=== PATIENT | female | born 1995 | race Caucasian/White ===

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

== ENCOUNTER → 2017-05-02 | Outpatient (CLI) | payer OTHER | LOC: M WUC 17:45 | PROVIDERS: ATTEND Physician Assistant | DX: J02.9 Acute pharyngitis, unspecified (principal) ==

== ENCOUNTER 2017-07-09 15:30 | Emergency (ER) | payer OTHER ==
[~2017-07-09] VITALS: Ht 177.8 cm; Wt 59.1 kg
[2017-07-09] MEDS ORDERED: TRINTAB3 (15:44)
--- NOTE | 2017-07-09 16:18 | REP ---
Left wrist four views: Comparison is 09/29/2012. There is no acute fracture or dislocation. The previous fracture of the distal radius has healed in satisfactory position alignment. Mineralization and joint spaces are normal. No calcifications or foreign bodies. Impression: Negative left wrist. Signed by Ulises Pena MD 07/09/2017 04:10 P
[2017-07-09 16:38] VITALS: BP 130/72
[2017-07-09] MEDS ORDERED: IBUPROFEN 600 MG TAB PO ONE (16:45)
== END 2017-07-09 16:45 | disposition home or self-care (01) ==
LOC: M ED 15:30
DX: S63.502A Unspecified sprain of left wrist, initial encounter (principal); Y04.0XXA Assault by unarmed brawl or fight, initial encounter; Y92.098 Other place in other non-institutional residence as the place of occurrence of the external cause; Y93.89 Activity, other specified; Y99.8 Other external cause status; F41.9 Anxiety disorder, unspecified; F32.9 Major depressive disorder, single episode, unspecified; Z88.5 Allergy status to narcotic agent

== ENCOUNTER → 2017-09-27 | Outpatient (CLI) | payer OTHER | LOC: M ADAMS 13:37 | DX: M25.532 Pain in left wrist (principal) ==

== ENCOUNTER → 2018-01-31 | Outpatient (REF) | payer OTHER | LOC: M LAB REF 15:05 | DX: J02.9 Acute pharyngitis, unspecified (principal) ==

== ENCOUNTER 2018-03-30 22:46 | Emergency (ER) | payer OTHER ==
[2018-03-31] MEDS: ACETAMINOPHEN 325 MG TAB PO (03:06)
== END 2018-03-31 05:08 | disposition home or self-care (01) ==
LOC: M ED 22:46
DX: T74.11XA Adult physical abuse, confirmed, initial encounter (principal); T14.8XXA Other injury of unspecified body region, initial encounter; R93.7 Abnormal findings on diagnostic imaging of other parts of musculoskeletal system; Y07.11 Biological father, perpetrator of maltreatment and neglect; Y92.89 Other specified places as the place of occurrence of the external cause; Z88.5 Allergy status to narcotic agent; Z79.3 Long term (current) use of hormonal contraceptives
CPT/HCPCS: 71101

== ENCOUNTER 2018-09-28 14:59 | Inpatient (IN) | payer MEDICAID, OTHER ==
[~2018-09-28] VITALS: Ht 175.3 cm; Wt 59.1 kg
[~2018-09-28 14:59] MED LIST: TRINTAB
[2018-09-28 16:21] LABS: HEMATOCRIT 43.8 % (36.0-47.0); HEMOGLOBIN 14.8 g/dl (12.0-15.5); MEAN CORPUSCULAR HEMOGLOBIN 27.8 pg (27.0-33.0); MEAN CORPUSCULAR HGB CONC 33.8 g/dl (32.0-36.5); MEAN CORPUSCULAR VOLUME 82.3 fl (80.0-96.0); PLATELET COUNT, AUTOMATED 254 10^3/uL (150-450); RED BLOOD COUNT 5.32 10^6/uL (4.00-5.40); WHITE BLOOD COUNT 8.2 10^3/uL (4.0-10.0)
[2018-09-28 16:40] LABS: AMPHETAMINES LEVEL URINE NEGATIVE (NEGATIVE); BARBITURATES URINE NEGATIVE (NEGATIVE); BENZODIAZEPINES URINE NEGATIVE (NEGATIVE); CANNABINOIDS URINE POSITIVE (NEGATIVE); COCAINE METABOLITE URINE POSITIVE (NEGATIVE); METHADONE URINE NEGATIVE (NEGATIVE); OPIATES URINE NEGATIVE (NEGATIVE); PHENCYCLIDINE URINE NEGATIVE (NEGATIVE)
[2018-09-28 16:49] LABS: ALT/SGPT 27 U/L (12-78); BILIRUBIN,TOTAL 1.3 MG/DL (0.2-1.0); BLOOD UREA NITROGEN 9 MG/DL (7-18); CALCIUM LEVEL 9.2 MG/DL (8.5-10.1); CARBON DIOXIDE LEVEL 28 MEQ/L (21-32); CHLORIDE LEVEL 105 MEQ/L (98-107); CREATININE FOR GFR 0.69 MG/DL (0.55-1.30); GLOMERULAR FILTRATION RATE > 60.0 (>60); GLUCOSE, FASTING 86 MG/DL (70-100); POTASSIUM SERUM 3.8 MEQ/L (3.5-5.1); SODIUM LEVEL 143 MEQ/L (136-145)
[2018-09-28 16:50] LABS: ACETAMINOPHEN LEVEL < 2.0 UG/ML (10.0-30.0); ALBUMIN 4.5 GM/DL (3.2-5.2); BILIRUBIN,DIRECT 0.3 MG/DL (0.0-0.2); ETHYL ALCOHOL (ETHANOL) < 0.003 % (0.000-0.010); HCG, SERUM QUALITATIVE NEGATIVE (NEGATIVE); SALICYLATE LEVEL < 1.7 MG/DL (5.0-30.0); THYROID STIMULATING HORMONE 0.948 uIU/ML (0.358-3.740); TOTAL PROTEIN 7.7 GM/DL (6.4-8.2)
[2018-09-28] MEDS ORDERED: ALPRAZolam 0.5 MG TAB PO ONE (17:30)
[2018-09-28] MEDS ORDERED: ACETAMINOPHEN TAB 650MG DOSE (2X325MG) PO PRN (18:15)
[2018-09-28] MEDS ORDERED: MOM 30ML SUSPENSION UDC PO PRN (18:15)
[2018-09-28] MEDS ORDERED: MAALOX 30 ML SUSP *UDC PO PRN (18:15)
[2018-09-28 19:42] VITALS: BP 134/70
[2018-09-28] MEDS: traZODone 50 MG TAB PO PRN (22:50)
[2018-09-29 06:35] VITALS: BP 106/52
--- NOTE | 2018-09-29 09:28 | HPEPDOC ---
[facility] Medical History & Physical Date of Admission Sep 28, 2018 History and Physical PCP: None ATTENDING: Dr. Kenji Odonnell HPI: 23yoF admitted to [facility] for unspecified depressive disorder, being medically examined today. No acute medical complaints today. Denies any fevers, chills, weakness, fatigue, COLLIER, CP, SOB, cough, palpitations, abdominal pain, N/V/D or changes in bowel or bladder habits. PMHx: Anxiety Depression PTSD History of SI substance use PSHX: oral surgery SOCHX: Resides in: [facility] Marital Status: single Kids: none Employment: unemployed Tobacco use: denies ETOH: states 3 shots tequila Friday Illicit Drugs: cocaine, marijuana IV Drug Use: Denies Tattoos done unprofessionally: Denies FAMHX: Mother: Alive, h/o DVT Father: Alive, well Siblings: Alive, well Children: none Unexpected deaths due to medical reasons: None. ROS: As noted in HPI, otherwise 11pt ROS of systems reviewed and remarkable only for LMP 09/27/18. PE: GEN: 23yoF, appears stated age. Well-nourished, well developed. No acute distress. Alert and oriented x 3. Avoids eye contact. HEENT: Normocephalic, atraumatic. Pupils are equal, round, and reactive to light. Extraocular movements are intact. No nystagmus appreciated. Sclera are nonicteric. Conjunctiva without injection. Nose midline. Nasal turbinates without bogginess. EACs both patent BL. TMs both visualized and dockery with good cone of light, no bulging or erythema. No facial asymmetry. Moist mucous membranes. Dentition fair. Pharynx pink and moist, no cobblestoning. Neck supple, trachea midline. No lymphadenopathy or thyromegaly appreciated. CHEST: Regular rate and rhythm, +S1, +S2 LUNGS: Clear to auscultation bilaterally. No wheezes, rales, or rhonchi. Breathing appears symmetric and easy. Patient is speaking in full sentences. No accessory muscle use. ABD: Round, soft, non-tender, non-distended. +Bowel sounds throughout. No rebound or guarding. No costovertebral angle tenderness. EXT: Pulses 2+ bilaterally dorsalis pedis and radial. No lower extremity edema appreciated. SKIN: [place], dry, warm. Capillary refill <2sec. No rashes. NEURO: Alert and oriented x 3. Cranial nerves III-XII are intact. No focal deficits appreciated. EKG: pending A&P: 23yoF admitted to [facility] for unspecified depressive disorder 1. Psych. Plan per Psychiatry. Obtain baseline EKG to assure the safety of psychiatric medications as they can prolong the QT interval. 2. Follow up. No Primary Care Provider. Will attempt to establish PCP on discharge. 3. Substance use. Management per psychiatry. Vital Signs Vital Signs Date Time Temp Pulse Resp B/P (MAP) Pulse Ox O2 Delivery O2 Flow Rate FiO2 09/29/18 08:26 Room Air 09/29/18 06:35 97.6 60 16 106/52 (70) 09/28/18 17:48 99 Laboratory Data Labs 24H Laboratory Tests 2 09/28/18 16:00: Nucleated Red Blood Cells % (auto) 0.0, Anion Gap 10, Glomerular Filtration Rate > 60.0, Calcium Level 9.2, Aspartate Amino Transf (AST/SGOT) 13, Alanine Aminotransferase (ALT/SGPT) 27, Alkaline Phosphatase 72, Total Bilirubin 1.3H, Direct Bilirubin 0.3H, Total Protein 7.7, Albumin 4.5, Albumin/Globulin Ratio 1.41, Thyroid Stimulating Hormone (TSH) 0.948, Human Chorionic Gonadotropin, Qual NEGATIVE, Salicylates Level < 1.7L, Urine Amphetamines Screen NEGATIVE, Urine Benzodiazepines Screen NEGATIVE, Urine Opiates Screen NEGATIVE, Urine Methadone Screen NEGATIVE, Acetaminophen Level < 2.0L, Urine Barbiturates Screen NEGATIVE, Urine Phencyclidine Screen NEGATIVE, Urine Cocaine Metabolite Screen POSITIVEH, Urine Cannabinoids Screen POSITIVEH, Ethyl Alcohol Level < 0.003 CBC/BMP Laboratory Tests 09/28/18 16:00 Red Blood Count 5.32, Mean Corpuscular Volume 82.3, Mean Corpuscular Hemoglobin 27.8, Mean Corpuscular Hemoglobin Concent 33.8, Red Cell Distribution Width 13.7 Home Medications No Active Prescriptions or Reported Meds Allergies Coded Allergies: Hydrocodone (Verified Allergy, Mild, rash, 09/28/18) Sully Larsen Sep 29, 2018 09:28
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
[2018-09-29] MEDS ORDERED: FLUoxetine 10 MG CAP PO ONE (10:30)
[2018-09-29 18:10] VITALS: BP 122/70
[2018-09-29] MEDS: PRAZOSIN 1 MG CAP PO SCH (21:09)
[2018-09-29] MEDS: traZODone 50 MG TAB PO PRN (21:09)
[2018-09-30 06:14] VITALS: BP 123/60
--- NOTE | 2018-09-30 07:59 | ECGEPIP ---
Stationary ECG Study [facility] Test Date: 2018-09-29 Pat Name: ALY MCDANIEL Department: Room: [place] [address] Gender: F Technical Writer: : 1995 Requested By: Sully Larsen Order Number: [id number] Reading MD: Leandro Myles Measurements Intervals [place] Rate: 56 P: -29 NV: 152 QRS: 67 QRSD: 85 T: 42 QT: 455 QTc: 440 Interpretive Statements SINUS BRADYCARDIA Nonspecific ST-T wave abnormalities Similar to tracing done 12-09-16 Electronically Signed On 09-30-2018 7:59:17 EST by Leandro Myles
[2018-09-30] MEDS: FLUoxetine 10 MG CAP PO SCH (08:23)
[2018-09-30] MEDS: hydrOXYzine 25 MG TAB PO PRN ×2 (08:24→15:57)
[2018-09-30] MEDS ORDERED: DOXEPIN 10 MG CAP PO PRN (09:30)
--- NOTE | 2018-09-30 09:30 | MHIPNPDOC ---
[facility] Progress Note Progress Note DATE OF SERVICE: 09/30/18 HISTORY: Patient is a 23 -year-old , female, with psych history of PTSD and depression who self presented to the ED endorsing SI with no plan due to r elationship problems with her ex-boyfriend of 1yr. Pt stated in the ED that 'I can't handle this stress, I want to kill myself." Stated that her ex-boyfriend and she have been on-and-off for the past year and that she recently thought they were getting back together and sent him money that he spent taking another girl on a date. Pt stated in the ED that her "heart was broken" and crying hysterically limiting interview. Pt admitted to being homeless and that DSS won't help her. Utox pos cocaine and cannabis. VITAL SIGNS: See below. NEW TEST RESULTS: See below. CURRENT MEDICATIONS: See below. MENTAL STATUS EXAMINATION: General Appearance: unkempt, disheveled, appears stated age, hospital scubs/clothing Build: average Demeanor: average, withdrawn Eye Contact: average Activity: average Behavior: cooperative, withdrawn Speech: clear, spontaneous, low in volume, reg/rate,rhythm,volume Mood: depressed, anxious Mood sad Affect: constricted, flat, congruent, anxious Thought Process: logical/linear, depressed, intact Thought Content (Delusions): none reported, denies SI, HI, AVH Thought Content (Other): none reported, appropriate Thought Content (Aggressive): none reported Perception (Hallucinations): none reported Perception (Other): none reported Cognition (Impairment of): none reported Cognition(Intelligence Est.): average Oriented: Awake, Alert, Oriented times three Insight: fair Judgment: Fair Psychosis: Denies DIAGNOSES: PTSD depression unspecified ASSESSMENT:Pt seen and states she dreams last night about her ex-boyfriend that were good but then woke up feeling sad realizing they are no longer together. Continues to endorse depressed mood and anxiety due to relationship problems and feeling hurt. Denies SI. Did take prazosin and trazodone last night and discussed with pt that trazodone can cause vivid dreams but that could switch it to doxepin for sleep which is unlikely to cause dreams and agreeable. Risks/benefits discussed. States she tolerating her prozac and vistaril and finding them beneficial. Is attending groups and finding them helpful. Denies SI/HI, hallucinations, delusions. Feels safe here. MANAGEMENT PLAN: continue plan. d/c trazodone and start doxepin for sleep Medications: prozac 10mg daily prazosin 1mg qhs vistaril 25mg q6hr prn anxiety doxepin 10mg qhs prn insomnia TIME SPENT: 30 minutes. Vital Signs Vital Signs Date Time Temp Pulse Resp B/P (MAP) Pulse Ox O2 Delivery O2 Flow Rate FiO2 09/30/18 06:14 98.2 72 18 123/60 (81) 09/29/18 08:26 Room Air 09/28/18 17:48 99 Current Medications Current Medications Acetaminophen (Tylenol Tab) 650 mg Q6HP PRN PO HEADACHE or DISCOMFORT Last administered on 09/28/18 22:51; Start 09/28/18 at 18:15 Al Hydrox/Mg Hydrox/Simethicone (Mylanta) 30 ml Q4HP PRN PO HEARTBURN/INDIGESTION; Start 09/28/18 at 18:15 Fluoxetine HCl (PROzac) 10 mg DAILY PO Last administered on 09/30/18 08:23; Start 09/30/18 at 09:00 Home Med (Med Rec Complete!) ASDIRECTED XX ; Start 09/28/18 at 18:30; Stop 09/28/18 at 18:30; Status DC Hydroxyzine HCl (Atarax) 25 mg Q6HP PRN PO ANXIETY Last administered on 08:24; Start 09/29/18 at 10:30 Magnesium Hydroxide (Milk Of Magnesia) 30 ml DAILYPRN PRN PO CONSTIPATION; Start 09/28/18 at 18:15 Prazosin HCl (Minipress) 1 mg QHS PO Last administered on 09/29/18 21:09; Start 09/29/18 at 21:00 Trazodone HCl (Desyrel) 50 mg QHSP PRN PO INSOMNIA Last administered on 09/29/18 21:09; Start 09/28/18 at 18:15 Allergies Coded Allergies: Hydrocodone (Verified Allergy, Mild, rash, 09/28/18) TODD DANIEL DO Sep 30, 2018 9:30 am
[2018-09-30 18:20] VITALS: BP 130/80
[2018-09-30] MEDS: PRAZOSIN 1 MG CAP PO SCH (22:18)
[2018-09-30] MEDS ORDERED: QUEtiapine FUMARATE 50 MG TAB PO ONE (23:30)
[2018-10-01 06:36] VITALS: BP 138/78
[2018-10-01] MEDS: FLUoxetine 10 MG CAP PO SCH (08:36)
[2018-10-01] MEDS: hydrOXYzine 25 MG TAB PO PRN ×3 (08:37→20:48)
--- NOTE | 2018-10-01 10:07 | MHIPNPDOC ---
[facility] Progress Note Progress Note DATE OF SERVICE: 10/01/18 HISTORY: Patient is a 23 -year-old , female, with psych history of PTSD and depression who self presented to the ED endorsing SI with no plan due to r elationship problems with her ex-boyfriend of 1yr. Pt stated in the ED that 'I can't handle this stress, I want to kill myself." Stated that her ex-boyfriend and she have been on-and-off for the past year and that she recently thought they were getting back together and sent him money that he spent taking another girl on a date. Pt stated in the ED that her "heart was broken" and crying hysterically limiting interview. Pt admitted to being homeless and that DSS won't help her. Utox pos cocaine and cannabis. VITAL SIGNS: See below. NEW TEST RESULTS: See below. CURRENT MEDICATIONS: See below. MENTAL STATUS EXAMINATION: General Appearance: clean, appears stated age, hospital scrubs/clothing Build: average Demeanor: average, withdrawn Eye Contact: average Activity: average Behavior: cooperative, withdrawn Speech: clear, spontaneous, low in volume, reg/rate,rhythm,volume Mood: less depressed, less anxious Mood "better" Affect: less constricted, flat, congruent, less anxious Thought Process: logical/linear, less depressed, intact Thought Content (Delusions): none reported, denies SI, HI, AVH Thought Content (Other): none reported, appropriate Thought Content (Aggressive): none reported Perception (Hallucinations): none reported Perception (Other): none reported Cognition (Impairment of): none reported Cognition(Intelligence Est.): average Oriented: Awake, Alert, Oriented times three Insight: fair Judgment: Fair Psychosis: Denies DIAGNOSES: PTSD depression unspecified ASSESSMENT:Pt seen and states she really well after taking dose of seroquel w/o worrisome thoughts preventing sleep and really liked it. States she took doxepin first but not helpful. States depressed mood and anxiety are improving with current meds and treatment. Denies SI. States she tolerating her prozac and vistaril and finding them beneficial. Is attending groups and finding them helpful. Denies SI/HI, hallucinations, delusions. Feels safe here. MANAGEMENT PLAN: continue plan. d/c doxepin and start seroquel for sleep Medications: prozac 10mg daily prazosin 1mg qhs vistaril 25mg q6hr prn anxiety seroquel 50mg qhs prn insomnia TIME SPENT: 30 minutes. Vital Signs Vital Signs Date Time Temp Pulse Resp B/P (MAP) Pulse Ox O2 Delivery O2 Flow Rate FiO2 10/01/18 06:36 98.6 76 16 138/78 (98) 09/29/18 08:26 Room Air 09/28/18 17:48 99 Current Medications Current Medications Acetaminophen (Tylenol Tab) 650 mg Q6HP PRN PO HEADACHE or DISCOMFORT Last administered on 09/28/18 22:51; Start 09/28/18 at 18:15 Al Hydrox/Mg Hydrox/Simethicone (Mylanta) 30 ml Q4HP PRN PO HEARTBURN/INDIGESTION; Start 09/28/18 at 18:15 Doxepin HCl (SINEquan) 10 mg QHS PRN PO INSOMNIA Last administered on 09/30/18 22:18; Start 09/30/18 at 09:30 Fluoxetine HCl (PROzac) 10 mg DAILY PO Last administered on 10/01/18 08:36; Start 09/30/18 at 09:00 Home Med (Med Rec Complete!) ASDIRECTED XX ; Start 09/28/18 at 18:30; Stop 09/28/18 at 18:30; Status DC Hydroxyzine HCl (Atarax) 25 mg Q6HP PRN PO ANXIETY Last administered on 10/01/18 08:37; Start 09/29/18 at 10:30 Magnesium Hydroxide (Milk Of Magnesia) 30 ml DAILYPRN PRN PO CONSTIPATION; Start 09/28/18 at 18:15 Prazosin HCl (Minipress) 1 mg QHS PO Last administered on 09/30/18 22:18; Start 09/29/18 at 21:00 Trazodone HCl (Desyrel) 50 mg QHSP PRN PO INSOMNIA Last administered on 09/29/18 21:09; Start 09/28/18 at 18:15; Stop 09/30/18 at 09:31; Status DC Allergies Coded Allergies: Hydrocodone (Verified Allergy, Mild, rash, 09/28/18) TODD DANIEL DO Oct 01, 2018 10:07 am
[2018-10-01 18:00] VITALS: BP 136/85
[2018-10-01 20:48] VITALS: BP 132/74
[2018-10-01] MEDS: PRAZOSIN 1 MG CAP PO SCH (20:48)
[2018-10-01] MEDS ORDERED: QUEtiapine FUMARATE 50 MG TAB PO SCH (21:00)
[2018-10-02 06:00] VITALS: BP 125/72
[2018-10-02] MEDS: FLUoxetine 10 MG CAP PO SCH (08:45)
--- NOTE | 2018-10-02 09:39 | MHDSPDOC ---
[facility] Discharge Summary Discharge Summary DATE OF ADMISSION: Sep 28, 2018 at 6:09 pm DATE OF DISCHARGE: Oct 02, 2018 DISCHARGE DIAGNOSES: PTSD depression unspecified REASON FOR ADMISSION: Patient is a 23 -year-old , female, with psych history of PTSD and depression who self presented to the ED endorsing SI with no plan due to relationship problems with her ex-boyfriend of 1yr. Pt stated in the ED that 'I can't handle this stress, I want to kill myself." Stated that her ex-boyfriend and she have been on-and-off for the past year and that she recently thought they were getting back together and sent him money that he spent taking another girl on a date. Pt stated in the ED that her "heart was broken" and crying hysterically limiting interview. Pt admitted to being homeless and that DSS won't help her. Utox pos cocaine and cannabis. CONSULTANTS INVOLVED: none TREATMENT AND PROGRESS ON THE UNIT : Pt was admitted to [facility], seen for psychiatric assessment and started on prozac 10mg daily for mood and anxiety, seroquel 50mg for insomnia, and prazosin 1mg for nightmares. She was provided vistaril 25mg q6hr prn anxiety. Pt found her medications beneficial and tolerated them well. She attended groups daily during her stay. Her symptoms improved with treatment. On day of discharge she denied depression, anxiety, insomnia, SI/HI, hallucinations, delusions. She was discharged to homeless senior living for the next 2wks then reapply for [facility] housing. She will have at [facility]. She felt safe for discharge DISCHARGE ASSESSMENT: Pt seen and states her mood is "good" and she's finding her medications beneficial. Endorses improved depression, anxiety, and nightmares. She's future oriented to maybe returning to school. Denies SI. States she tolerating her prozac and vistaril and finding them beneficial. Is attending groups and finding them helpful. Denies depression, anxiety, insomnia, SI/HI, hallucinations, delusions. Feels safe to be discharged to homeless senior living. Her mother is supportive of her. MENTAL STATUS EXAMINATION ON DISCHARGE: General Appearance: clean, appears stated age, hospital scrubs/clothing Build: average Demeanor: average Eye Contact: average Activity: average Behavior: cooperative, withdrawn Speech: clear, spontaneous, reg/rate,rhythm,volume Mood: euthymic, full Mood "good" Affect: euthymic, full Thought Process: logical/linear, intact Thought Content (Delusions): none reported, denies SI, HI, AVH Thought Content (Other): none reported, appropriate Thought Content (Aggressive): none reported Perception (Hallucinations): none reported Perception (Other): none reported Cognition (Impairment of): none reported Cognition(Intelligence Est.): average Oriented: Awake, Alert, Oriented times three Insight: good Judgment: good Psychosis: Denies MEDICATIONS ON DISCHARGE: prozac 10mg daily prazosin 1mg qhs vistaril 25mg q6hr prn anxiety seroquel 50mg qhs prn insomnia PLAN/FOLLOWUP ARRANGEMENTS: D/c to homeless senior living with follow-up at [facility]. The amount of time spent in the coordination of care for this patient was approximately 30 minutes. Vital Signs/I&Os Vital Signs Date Time Temp Pulse Resp B/P (MAP) Pulse Ox O2 Delivery O2 Flow Rate FiO2 10/02/18 06:00 98.7 76 14 125/72 (89) 09/29/18 08:26 Room Air 09/28/18 17:48 99 Medications No Active Prescriptions or Reported Meds Allergies Coded Allergies: Hydrocodone (Verified Allergy, Mild, rash, 09/28/18) TODD DANIEL DO Oct 02, 2018 9:39 am
[2018-10-02] MEDS ORDERED: PROZ10CA7 PO (09:42)
[2018-10-02] MEDS ORDERED: MINI1CAP PO (09:42)
[2018-10-02] MEDS ORDERED: QUET5TAB PO (09:42)
[2018-10-02] MEDS ORDERED: HYDR-3363 PO (09:42)
[2018-10-02] MEDS: hydrOXYzine 25 MG TAB PO PRN ×2 (10:04→16:18)
== END 2018-10-02 16:27 | disposition home or self-care (01) | DRG 755 ==
LOC: M ED 14:59 → M ED INP 18:09 → M PSY 18:47
PROVIDERS: ADMIT Psychiatry & Neurology Psychiatry; ATTEND Psychiatry & Neurology Psychiatry
DX: F43.10 Post-traumatic stress disorder, unspecified (principal); R45.851 Suicidal ideations; F32.9 Major depressive disorder, single episode, unspecified; F41.9 Anxiety disorder, unspecified; Z88.5 Allergy status to narcotic agent

== ENCOUNTER → 2019-05-07 | Outpatient (REF) | payer OTHER ==
[~2019-05-07] MED LIST changes: +HYDR-3363 PO; +MINI1CAP PO; +PROZ10CA7 PO; +QUET5TAB PO
[2019-05-07 17:40] LABS: ALBUMIN 4.1 GM/DL (3.2-5.2); ALT/SGPT 17 U/L (12-78); BILIRUBIN,TOTAL 0.5 MG/DL (0.2-1.0); BLOOD UREA NITROGEN 16 MG/DL (7-18); CALCIUM LEVEL 9.4 MG/DL (8.5-10.1); CARBON DIOXIDE LEVEL 26 MEQ/L (21-32); CHLORIDE LEVEL 108 MEQ/L (98-107); CHOLESTEROL LEVEL 194 MG/DL (<200); CHOLESTEROL RISK RATIO 3.031 (<5); CREATININE FOR GFR 0.87 MG/DL (0.55-1.30); FREE T4 0.94 NG/DL (0.76-1.46); GLOMERULAR FILTRATION RATE > 60.0 (>60); GLUCOSE, FASTING 112 MG/DL (70-100); HDL CHOLESTEROL 64 MG/DL (>40); LDL CHOLESTEROL 88 MG/DL (<100); NON-HDL-C 130 MG/DL; POTASSIUM SERUM 4.1 MEQ/L (3.5-5.1); SODIUM LEVEL 140 MEQ/L (136-145); TRIGLYCERIDES LEVEL 209 MG/DL (<150)
[2019-05-07 17:41] LABS: BASO # 0.1 10^3/uL (0.0-0.2); BASO % 0.5 % (0.0-1.0); EOS # 0.2 10^3/uL (0.0-0.5); EOS % 1.8 % (0.0-3.0); HEMATOCRIT 42.1 % (36.0-47.0); HEMOGLOBIN 14.6 g/dl (12.0-15.5); LYMPH # 1.8 10^3/uL (1.5-5.0); LYMPH % 18.5 % (24.0-44.0); MEAN CORPUSCULAR HEMOGLOBIN 29.1 pg (27.0-33.0); MEAN CORPUSCULAR HGB CONC 34.7 g/dl (32.0-36.5); MONO # 0.6 10^3/uL (0.0-0.8); MONO % 5.9 % (0.0-5.0); NEUTROPHILS # 6.9 10^3/uL (1.5-8.5); NEUTROPHILS % 72.9 % (36.0-66.0); PLATELET COUNT, AUTOMATED 217 10^3/uL (150-450); RED BLOOD COUNT 5.01 10^6/uL (4.00-5.40); WHITE BLOOD COUNT 9.5 10^3/uL (4.0-10.0)
[2019-05-07 18:50] LABS: HEMOGLOBIN A1c 5.1 %
== END ==
LOC: M LAB REF 16:54
PROVIDERS: ATTEND Nurse Practitioner Family
DX: Z13.9 Encounter for screening, unspecified (principal)

== ENCOUNTER → 2019-06-22 | Outpatient (CLI) | payer OTHER ==
--- NOTE | 2019-06-22 16:30 | REP ---
RIGHT BREAST ULTRASOUND: Real-time sonographic evaluation of the right breast performed. Reportedly there is a palpable lump at about 12-o'clock for the past year. There is dense fibroglandular tissue present. I do not see evidence of a discrete cystic or solid mass. IMPRESSION: ACR 2 benign. Dense breast parenchyma in the region of the palpable lump 12-o'clock right breast. No discrete cystic or solid mass. Clinical correlation and followup is recommended. A negative ultrasound should not deter biopsy of there is a clinically suspicious palpable mass present. Electronically Signed by Ulises Mills MD 06/22/2019 04:39 P
== END ==
LOC: M RAD 15:39
PROVIDERS: ATTEND Nurse Practitioner Family
DX: N63.10 Unspecified lump in the right breast, unspecified quadrant (principal)

== ENCOUNTER 2020-05-14 03:45 | Emergency (ER) | payer OTHER ==
[~2020-05-14] VITALS: Ht 172.7 cm; Wt 60.8 kg
[2020-05-14] MEDS ORDERED: BOOSTRIX/ADACEL VACCINE (DIPHTH/PERTUSS/ACELL/TETANUS) 0.5ML SYR IM ONE (04:00)
[2020-05-14] MEDS ORDERED: ceFAZolin SOD 1 GM in D5W MINI-BAG PLUS 50 ML IV ONE (04:00)
[2020-05-14] MEDS ORDERED: LORazepam 2 MG/ML VIAL IV STA (04:14)
[2020-05-14 04:40] LABS: BASO # 0.1 10^3/uL (0.0-0.2); BASO % 0.3 % (0.0-1.0); EOS % 0.1 % (0.0-3.0); HEMATOCRIT 48.7 % (36.0-47.0); HEMOGLOBIN 16.4 g/dl (12.0-15.5); LYMPH # 1.2 10^3/uL (1.5-5.0); LYMPH % 4.4 % (24.0-44.0); MEAN CORPUSCULAR HEMOGLOBIN 29.3 pg (27.0-33.0); MEAN CORPUSCULAR HGB CONC 33.7 g/dl (32.0-36.5); MEAN CORPUSCULAR VOLUME 87.1 fl (80.0-96.0); MONO # 1.4 10^3/uL (0.0-0.8); NEUTROPHILS # 24.8 10^3/uL (1.5-8.5); NEUTROPHILS % 89.5 % (36.0-66.0); PLATELET COUNT, AUTOMATED 294 10^3/uL (150-450); RED BLOOD COUNT 5.59 10^6/uL (4.00-5.40); WHITE BLOOD COUNT 27.6 10^3/uL (4.0-10.0)
[2020-05-14 05:09] LABS: HCG, SERUM QUALITATIVE NEGATIVE (NEGATIVE)
[2020-05-14 05:14] LABS: AMPHETAMINES LEVEL URINE NEGATIVE (NEGATIVE); BARBITURATES URINE NEGATIVE (NEGATIVE); BENZODIAZEPINES URINE POSITIVE (NEGATIVE); CANNABINOIDS URINE NEGATIVE (NEGATIVE); COCAINE METABOLITE URINE NEGATIVE (NEGATIVE); METHADONE URINE NEGATIVE (NEGATIVE); OPIATES URINE NEGATIVE (NEGATIVE); PHENCYCLIDINE URINE NEGATIVE (NEGATIVE)
[2020-05-14 05:14] LABS: ACETAMINOPHEN LEVEL < 2.0 UG/ML (10.0-30.0); ALBUMIN 4.6 GM/DL (3.2-5.2); ALT/SGPT 37 U/L (12-78); BILIRUBIN,DIRECT 0.2 MG/DL (0.0-0.2); BILIRUBIN,TOTAL 0.8 MG/DL (0.2-1.0); BLOOD UREA NITROGEN 12 MG/DL (7-18); CALCIUM LEVEL 9.6 MG/DL (8.5-10.1); CARBON DIOXIDE LEVEL 23 MEQ/L (21-32); CHLORIDE LEVEL 107 MEQ/L (98-107); CPK CREATINE PHOSPHOKINASE 452 U/L (26-192); CREATININE FOR GFR 1.05 MG/DL (0.55-1.30); ETHYL ALCOHOL (ETHANOL) < 0.003 % (0.000-0.010); GLOMERULAR FILTRATION RATE > 60.0 (>60); GLUCOSE, FASTING 116 MG/DL (70-100); POTASSIUM SERUM 3.5 MEQ/L (3.5-5.1); SALICYLATE LEVEL < 1.7 MG/DL (5.0-30.0); SODIUM LEVEL 142 MEQ/L (136-145); TOTAL PROTEIN 7.5 GM/DL (6.4-8.2)
[2020-05-14] MEDS ORDERED: DERMABOND TOPICAL SKIN ADHESIVE TOP ONE (05:30)
[2020-05-14 08:12] LABS: BASO % 0.2 % (0.0-1.0); HEMATOCRIT 44.6 % (36.0-47.0); HEMOGLOBIN 15.1 g/dl (12.0-15.5); LYMPH # 0.9 10^3/uL (1.5-5.0); LYMPH % 6.2 % (24.0-44.0); MEAN CORPUSCULAR HEMOGLOBIN 29.4 pg (27.0-33.0); MEAN CORPUSCULAR HGB CONC 33.9 g/dl (32.0-36.5); MEAN CORPUSCULAR VOLUME 86.8 fl (80.0-96.0); MONO % 6.3 % (0.0-5.0); NEUTROPHILS # 13.1 10^3/uL (1.5-8.5); NEUTROPHILS % 86.8 % (36.0-66.0); PLATELET COUNT, AUTOMATED 196 10^3/uL (150-450); RED BLOOD COUNT 5.14 10^6/uL (4.00-5.40); WHITE BLOOD COUNT 15.1 10^3/uL (4.0-10.0)
--- NOTE | 2020-05-14 08:20 | REPVR ---
PROCEDURE INFORMATION: Exam: CT Head Without Contrast Exam date and time: 05/14/2020 8:02 AM Age: 25 years old Clinical indication: Altered mental status/memory loss; Confusion or disorientation TECHNIQUE: Imaging protocol: Computed tomography of the head without contrast. Radiation optimization: All CT scans at this facility use at least one of these dose optimization techniques: automated exposure control; mA and/or kV adjustment per patient size (includes targeted exams where dose is matched to clinical indication); or iterative reconstruction. COMPARISON: CT Head without contrast 03/31/2018 2:20 AM FINDINGS: Brain: There is no acute intracranial hemorrhage. No extra-axial fluid collection. No evidence of acute infarct. Mills white differentiation is intact. There is no evidence of mass. There is no mass effect or midline shift. Cerebral ventricles: No ventriculomegaly. Bones/joints: No acute fracture. Paranasal sinuses: Visualized sinuses are unremarkable. No fluid levels. Mastoid air cells: No significant mastoid effusion. Soft tissues: Unremarkable as visualized. IMPRESSION: No evidence of acute intracranial abnormality. No acute hemorrhage. No evidence of acute infarct or mass. Electronically signed by: Chelo Petit On 05/14/2020 08:20:07 AM
--- NOTE | 2020-05-14 08:21 | REPVR ---
PROCEDURE INFORMATION: Exam: XR Chest, 1 View Exam date and time: 05/14/2020 8:08 AM Age: 25 years old Clinical indication: Other: General weakness; Additional info: Leukocytosis TECHNIQUE: Imaging protocol: XR of the chest Views: 1 view. COMPARISON: CR Ribs uni W-PA CHEST ONLY 03/31/2018 2:24 AM FINDINGS: Lungs: No consolidation. Pleural space: No significant visible pleural effusion. No pneumothorax. Heart/Mediastinum: No significant cardiomegaly. Bones/joints: No acute finding. IMPRESSION: No acute finding. Electronically signed by: Chelo Petit On 05/14/2020 08:21:45 AM
[2020-05-14] MEDS ORDERED: NS 1,000 ML IV ONE (10:00)
[2020-05-14] MEDS ORDERED: KETOROLAC 30 MG/ML 1ML VIAL IV ONE (10:00)
[2020-05-14 10:30] VITALS: BP 128/78
[2020-05-14] MEDS ORDERED: KEFL500C17 PO (10:40)
--- NOTE | 2020-05-14 20:50 | ECGEPIP ---
[facility] - ED Test Date: 2020-05-14 Pat Name: ALY MCDANIEL Department: Room: - Gender: Female Puffer Tender: NR : 1995 Requested By: NORMA Melendez Order Number: [id number] Reading MD: Opal Wilson Measurements Intervals [place] Rate: 122 P: 76 ME: 162 QRS: 70 QRSD: 86 T: 72 QT: 419 QTc: 599 Interpretive Statements SINUS TACHYCARDIA NONSPECIFIC T-WAVE ABNORMALITY ABNORMAL RHYTHM ECG INCREASED RATE 09/29/18 Electronically Signed on 05-14-2020 20:50:00 EDT by Opal Wilson
[2020-05-25 16:08] LABS: AMINOFLUNITRAZEPAM Negative (NEGATIVE); FLUNITRAZEPAM (ROHYPNOL) Negative (NEGATIVE)
== END 2020-05-14 10:50 | disposition left against medical advice (07) ==
LOC: M ED 03:45
DX: G93.41 Metabolic encephalopathy (principal); T07.XXXA Unspecified multiple injuries, initial encounter; R00.0 Tachycardia, unspecified; Z53.9 Procedure and treatment not carried out, unspecified reason; F33.9 Major depressive disorder, recurrent, unspecified; F41.9 Anxiety disorder, unspecified; Z88.6 Allergy status to analgesic agent; Z79.899 Other long term (current) drug therapy
CPT/HCPCS: 36415; 70450; 71045; 80048; 80076; 80307; 81001; 82550; 84703; 85025; 87040; 87077; 90471; 90715; 93005; 96365; 96366; 96375; 99285; G0480; J0690; J1885; J2060

== ENCOUNTER 2020-08-10 00:23 | Emergency (ER) | payer OTHER ==
[~2020-08-10 00:23] MED LIST changes: +KEFL500C17 PO; +QUET50TA3 PO; -QUET5TAB PO
--- OUTSIDE RECORDS SUMMARY | 2020-08-10 00:29 | CCD ---
Author Author [facility] Organization [facility] Address Unknown Phone Unavailable Care Team Providers Care Tank Operator Name Role Phone Raul, A Nida NARROW FABRICS WEAVER Unavailable Unavailable Raul, A Nida NARROW FABRICS WEAVER Unavailable Unavailable Raul, A Nida NARROW FABRICS WEAVER Unavailable Unavailable Raul, A Nida NARROW FABRICS WEAVER Unavailable Unavailable Raul, A Nida NARROW FABRICS WEAVER Unavailable Unavailable Raul, A Nida NARROW FABRICS WEAVER Unavailable Unavailable Raul, A Nida NARROW FABRICS WEAVER Unavailable Unavailable Raul, A Nida NARROW FABRICS WEAVER Unavailable Unavailable Raul, A Nida NARROW FABRICS WEAVER Unavailable Unavailable Raul, A Nida NARROW FABRICS WEAVER Unavailable Unavailable Raul, A Nida NARROW FABRICS WEAVER Unavailable Unavailable Raul, A Nida NARROW FABRICS WEAVER Unavailable Unavailable Raul, A Nida NARROW FABRICS WEAVER Unavailable Unavailable Raul, A Nida NARROW FABRICS WEAVER Unavailable Unavailable Raul, A Nida NARROW FABRICS WEAVER Unavailable Unavailable Raul, A Nida NARROW FABRICS WEAVER Unavailable Unavailable Raul, A Nida NARROW FABRICS WEAVER Unavailable Unavailable Raul, A Inda NARROW FABRICS WEAVER Unavailable Unavailable Raul, A Nida NARROW FABRICS WEAVER Unavailable Unavailable Raul, A Nida NARROW FABRICS WEAVER Unavailable Unavailable Raul, A Nida NARROW FABRICS WEAVER Unavailable Unavailable Raul, A Nida NARROW FABRICS WEAVER Unavailable Unavailable Raul, A Nida NARROW FABRICS WEAVER Unavailable Unavailable Raul, A Nida NARROW FABRICS WEAVER Unavailable Unavailable Raul, A Nida NARROW FABRICS WEAVER Unavailable Unavailable Raul, A Nida NARROW FABRICS WEAVER Unavailable Unavailable Raul, A Nida NARROW FABRICS WEAVER Unavailable Unavailable Heide Esparza Unavailable VINCE, H ANAID PROCESS CONTROL BOARD OPERATOR Unavailable Unavailable VINCE, H ANAID PROCESS CONTROL BOARD OPERATOR Unavailable Unavailable VINCE, H ANAID PROCESS CONTROL BOARD OPERATOR Unavailable Unavailable VINCE, H ANAID PROCESS CONTROL BOARD OPERATOR Unavailable Unavailable VINCE, H ANAID PROCESS CONTROL BOARD OPERATOR Unavailable Unavailable VINCE, H ANAID PROCESS CONTROL BOARD OPERATOR Unavailable Unavailable VINCE, H ANAID PROCESS CONTROL BOARD OPERATOR Unavailable Unavailable Raul, Nida NARROW FABRICS WEAVER NARROW FABRICS WEAVER Unavailable Unavailable Re-disclosure Warning The records that you are about to access may contain information from federally-assisted alcohol or drug abuse programs. If such information is present, then the following federally mandated warning applies: This information has been disclosed to you from records protected by federal confidentiality rules (42 CFR part 2). The federal rules prohibit you from making any further disclosure of this information unless further disclosure is expressly permitted by the written consent of the person to whom it pertains or as otherwise permitted by 42 CFR part 2. A general authorization for the release of medical or other information is NOT sufficient for this purpose. The Federal rules restrict any use of the information to criminally investigate or prosecute any alcohol or drug abuse patient.The records that you are about to access may contain highly sensitive health information, the redisclosure of which is protected by Article 27-F of the [facility] Public Health law. If you continue you may have access to information: Regarding HIV / AIDS; Provided by facilities licensed or operated by the [facility] Office of Mental Health; or Provided by the [facility] Office for People With Developmental Disabilities. If such information is present, then the following [facility] mandated warning applies: This information has been disclosed to you from confidential records which are protected by state law. State law prohibits you from making any further disclosure of this information without the specific written consent of the person to whom it pertains, or as otherwise permitted by law. Any unauthorized further disclosure in violation of state law may result in a fine or penitentiary sentence or both. A general authorization for the release of medical or other information is NOT sufficient authorization for further disc losure. Family History Family Member Name Family Member Gender Family Member Status Date o f Status Description Data Source(s) Unknown Unknown Problem [facility] ([facility]) pgm Unknown Unknown Encounters Encounter Providers Location Date Indications Data Source(s ) Outpatient Attender: Nida DAVID 05/15/2020 03:4 1:02 PM EDT [facility] Outpatient Attender: FRANKIE BEAUCHAMP 04/08/2020 12:02:32 A M EDT [facility] Outpatient Attender: FRANKIE TELLEZP NITO 01/04/2020 07:59:17 P M EDT [facility] Outpatient Attender: ANAID HOUSTON NP [facility] Cruz brasher 01/03/2020 04:30:00 AM EDT - 01/03/2020 04:30:00 AM EDT [facility] ([facility]) Attender: ANAID HOUSTON NP 01/03/2020 12:00:00 AM EDT [facility] ([facility]) Outpatient Attender: FRANKIE TELLEZBANNER 12/14/2019 03:37:00 P M EDT [facility] Outpatient Attender: ANAID HOUSTON NP [facility] brasher 12/01/2019 04:00:00 AM EDT - 12/01/2019 04:00:00 AM EDT [facility] ([facility]) Attender: ANAID HOUSTON NP 12/01/2019 12:00:00 AM EDT [facility] ([facility]) Outpatient Attender: ANAID HOUSTON NP [facility] brasher 11/08/2019 01:30:00 AM EDT - 11/08/2019 01:30:00 AM EDT [facility] ([facility]) Attender: ANAID HOUSTON NP 11/08/2019 12:00:00 AM EDT [facility] ([facility]) Outpatient Attender: Nida BEAUCHAMP 09/23/2019 11:3 3:01 AM [facility] Outpatient Attender: FRANKIE BEAUCHAMP 09/08/2019 03:02:00 P M [facility] Outpatient Attender: Nida TELLEZBANNER 09/08/2019 03:0 1:01 PM EST [facility] Outpatient Attender: ANAID HOUSTON NP [facility] brasher 09/08/2019 02:30:00 AM EST - 09/08/2019 02:30:00 AM EST [facility] ([facility]) Attender: ANAID HOUSTON NP 09/08/2019 12:00:00 AM EST [facility] ([facility]) Outpatient Attender: ANAID HOUSTON NP [facility] Cruz brasher 08/31/2019 04:00:00 AM EST - 08/31/2019 04:00:00 AM EST [facility] ([facility]) Attender: ANAID HOUSTON NP 08/31/2019 12:00:00 AM EST [facility] ([facility]) Outpatient Attender: ANAID HOUSTON NP [facility] Cruz anshu 08/03/2019 05:00:00 AM EST - 08/03/2019 05:00:00 AM EST [facility] ([facility]) Health Monitoring - 30 Min Attender: Heide Esparza [facility] amarjit Colette 08/03/2019 04:30:00 AM EST - 08/03/2019 04:30:00 AM EST [facility] ([facility]) Attender: ANAID HOUSTON NP 08/03/2019 12:00:00 AM EST [facility] ([facility]) Attender: Heide Esparza 08/03/2019 12:00:00 AM EST [facility] ([facility]) Outpatient Attender: Nida DAVID 07/10/2019 11:3 3:01 PM EST [facility]patient 07/06/2019 06:31:00 AM EST [facility] Attender: ANAID HOUSTON NP 07/06/2019 12:00:00 AM EST [facility] ([facility]) Outpatient Attender: ANAID HOUSTON NP [facility] anshu 07/05/2019 05:00:00 AM EST - 07/05/2019 05:00:00 AM EST [facility] ([facility]) Functional Status Medications Medication Brand Name Start Date Product Form Dose Route Admi nistrative Instructions Pharmacy Instructions Status Indications Reaction Description Data Source(s) olanzapine 2.5 MG Oral Tablet [Zyprexa] Zyprexa 12/01/2019 12: 00:00 AM EDT 2.5 mg by mouth completed Zyprexa by mouth [id number] 12/01/2019 01/30/2020 at bedtime 30 2.5 mg tablet [id number] [id number] Russ Houston [id number] Nurse Practitioner [facility] ([facility]) Hydroxyzine Hydrochloride 25 MG Oral Tablet hydroxyzine HCl 12/01/2019 12:00:00 AM EDT 25 mg completed [id number] hydroxyzine HCl 12/01/2019 12/31/2019 three times a day 15 25 mg tablet as needed 43981 1 [id number] Anaid Houston [id number] Nurse Practitioner [facility]) Prazosin 1 MG Oral Capsule prazosin 12/01/2019 12:00:00 AM EDT 1 mg by mouth completed [id number] prazosin by mouth [id number] 12/01/201911/2019 at bedtime 30 1 mg capsule 23306 [id number] Anaid Houston 3 [id number] Nurse Practitioner [facility] ([facility]) olanzapine 2.5 MG Oral Tablet [Zyprexa] Zyprexa 12/01/2019 12: 00:00 AM EDT 2.5 mg by mouth completed Zyprexa by mouth [id number] 12/01/2019 01/30/2020 at bedtime 30 2.5 mg tablet 46152 [id number] Russ Houston [id number] Nurse Practitioner [facility] ([facility]) Prazosin 1 MG Oral Capsule prazosin 12/01/2019 12:00:00 AM EDT 1 mg by mouth completed 448805 prazosin by mouth [id number] 12/01/201911/2019 at bedtime 30 1 mg capsule 88223 [id number] Anaid Houston 3 [id number] Nurse Practitioner [facility] ([facility]) Clonidine Hydrochloride 0.1 MG Oral Tablet clonidine HCl 12/01/2019 12:00:00 AM EDT 0.1 mg by mouth completed [id number] clonidine HCl by mouth [id number] 12/01/2019 12/07/2019 at bedtime 6 0.1 mg tablet 31521 [id number] Anaid Houston [id number] Nurse Practitioner [facility] ([facility]) Prazosin 1 MG Oral Capsule prazosin 04/22/2019 12:00:00 AM EDT 1 mg by mouth completed [id number] prazosin by mouth [id number] 04/22/201906/2020 at bedtime 30 1 mg capsule 70604 448026 [id number] Anaid Houston 3 [id number] Nurse Practitioner [facility] ([facility]) Fluoxetine 10 MG Oral Capsule fluoxetine 04/22/2019 12:00:00 AM EDT 10 mg by mouth completed [id number] fluoxetine by mouth [id number] 201810/02/2019 every morning 30 10 mg capsule 34155 [id number] Ernesto Houston [id number] Nurse Practitioner [facility] ([facility]) 24 HR Bupropion Hydrochloride 150 MG Extended Release Oral Tablet [Wellbutrin] Wellbutrin XL 04/22/2019 12:00:00 AM EDT 150 mg complete d [id number] Wellbutrin XL 04/22/2019 10/02/2019 every morning 30 150 mg tablet extended release 24 hr 04748 [id number] Anaid Houston [id number] Nurse Practitioner [facility] ([facility]) olanzapine 5 MG Oral Tablet [Zyprexa] Zyprexa 04/22/2019 12:00:00 AM EDT 5 mg by mouth completed 288886 Zyprexa by mouth [id number] 201810/02/2019 at bedtime 30 5 mg tablet 47397 716682 [id number] Anaid Houston [id number] Nurse Practitioner [facility] ([facility]) Fluoxetine 10 MG Oral Capsule fluoxetine 04/22/2019 12:00:00 AM EDT 10 mg by mouth completed [id number] fluoxetine by mouth [id number] 201811/07/2019 every morning 30 10 mg capsule 18576 [id number] Ernesto Houston [id number] Nurse Practitioner [facility] ([facility]) 24 HR Bupropion Hydrochloride 150 MG Extended Release Oral Tablet [Wellbutrin] Wellbutrin XL 04/22/2019 12:00:00 AM EDT 150 mg complete d [id number] Wellbutrin XL 04/22/2019 11/07/2019 every morning 30 150 mg tablet extended release 24 hr [id number] Anaiditalo Judde [id number] Nurse Practitioner [facility] ([facility]) Insurance Providers Payer name Policy type / Coverage type Policy ID Covered libertarian ID Covered libertarian's relationship to tapia Policy Tapia Plan Information MIO [id number] SP [id number] [place]ARE [place] O [id number] S [id number] Man[place] P [id number] S [id number] Medicaid S [id number] S [id number] Man[place] P [id number] S [id number] Man[place] P [id number] S [id number] Medicaid S [id number] S [id number] No Fault [id number] Self [id number] Mio [id number] Self [id number] No Fault [id number] Self [id number] No Fault Self MEDICAID [id number] SP [id number] CIGNA HEALTHCARE [id number] SP [id number] CIGNA/MVP/CONN GEN/PREFE O [id number] S [id number] Cigna/Conn Gen/Equicor Commercial [id number] Self [id number] Cigna/Conn Gen/Equ[employer]or Commercial [id number] Family Depende nt [id number] Cigna/Conn Gen/[employer] Commercial [id number] Self [id number] Cigna/Conn Gen/Equicor Commercial [id number] Self [id number] NO FAULT O [id number] S [id number] NO FAULT [id number] Cigna/Conn Gen/[employer] Commercial [id number] Self [id number] Cigna/Conn Gen/[employer] Commercial [id number] Self [id number] Cigna/Conn Gen/Equicor Commercial [id number] Self [id number] Cigna/Conn Gen/Equicor Commercial [id number] Self [id number] Cigna/Conn Gen/Equicor Commercial Self CIGNA HEALTHCARE -O/P [id number] 18 [id number] [facility] [id number] [id number] Cigna Medigap Part B Family Dependent Cigna Medigap Part B BC/BS Of [facility] MILI [id number] Problems, Conditions, and Diagnoses Code Display Name Description Problem Type Effective Dates Data Source(s) F10.10 Alcohol abuse, uncomplicated Alcohol Use Disorder, Mil d Condition 01/03/2020 12:00:00 AM EDT [facility] ([facility]) F43.12 Post-traumatic stress disorder, chronic Post-traumatic stress disorder, chronic Condition 01/03/2020 12:00:00 AM EDT [facility] ([facility]) F14.20 Cocaine dependence, uncomplicated Stimul ant Use Disorder. Moderate: Cocaine Condition 01/03/2020 12:00:00 AM EDT [facility] ([facility]) F12.20 Cannabis dependence, uncomplicated Cannabis Use Disorder, Moderate Condition 01/03/2020 12:00:00 AM EDT [facility] ([facility]) F33.1 Major depressive disorder, recurrent, mo derate Major Depressive Disorder, Recurrent episode, Moderate Condition 01/03/2020 12:00:00 AM EDT [facility] ([facility]) Surgeries/Procedures Procedure Description Date Indications Data Source(s) MHC Telemed E/M Lvl 3--Est pt 01/03/2020 12:00:00 AM EDT - 01/03/2020 12:00:00 AM EDT [facility] ([facility]) MHC Telemed E/M Lvl 3--Est pt 01/03/2020 12:00:00 AM E DT [facility] ([facility]) OFFICE OUTPATIENT VISIT 15 MINUTES 11/30 12:00:00 AM EDT - 12/01/2019 12:00:00 AM EDT [facility] ([facility]) OFFICE OUTPATIENT VISIT 15 MINUTES 12/01/2019 12:00:00 AM EDT [facility] ([facility]) MHC Telemed E/M Lvl 3--Est pt 11/08/2019 12:00:00 AM EDT - 11/08/2019 12:00:00 AM EDT [facility] ([facility]) MHC Telemed E/M Lvl 3--Est pt 11/08/2019 12:00:00 AM E DT [facility] ([facility]) OFFICE OUTPATIENT VISIT 15 MINUTES 09/08 12:00:00 AM EST - 09/08/2019 12:00:00 AM EST [facility] ([facility]) OFFICE OUTPATIENT VISIT 15 MINUTES 09/08/2019 12:00:00 AM EST [facility] ([facility]) OFFICE OUTPATIENT VISIT 15 MINUTES 08/31 12:00:00 AM EST - 08/31/2019 12:00:00 AM EST [facility] ([facility]) OFFICE OUTPATIENT VISIT 15 MINUTES 08/31/2019 12:00:00 AM EST [facility] ([facility]) OFFICE OUTPATIENT VISIT 15 MINUTES 08/03 12:00:00 AM EST - 08/03/2019 12:00:00 AM EST [facility] ([facility]) OFFICE OUTPATIENT VISIT 15 MINUTES 08/03/2019 12:00:00 AM EST [facility] ([facility]) PREVENT MED TESTER ROCKET ENGINE&/RISK FACTOR REDJ SPX 30 MIN 08/03/2019 12:00:00 AM EST - 08/03/2019 12:00:00 AM EST [facility] ([facility]) PREVENT MED TESTER ROCKET ENGINE&/RISK FACTOR REDJ SPX 30 MIN 08/03 12:00:00 AM EST [facility] ([facility]) OFFICE OUTPATIENT VISIT 15 MINUTES 07/06 12:00:00 AM EST - 07/06/2019 12:00:00 AM EST [facility] ([facility]) OFFICE OUTPATIENT VISIT 15 MINUTES 07/05/2019 12:00:00 AM EST [facility] ([facility]) Social History Code Duration Value Status Description Data Source(s ) Smoking 01/03/2020 12:00:00 AM EDT Unknown if ever smoked comp leted Unknown if ever smoked [facility] ([facility]) Smoking 12/01/2019 12:00:00 AM EDT Unknown if ever smoked comp leted Unknown if ever smoked [facility] ([facility]) Smoking 11/08/2019 12:00:00 AM EDT Unknown if ever smoked comp leted Unknown if ever smoked [facility] ([facility]) Smoking 09/08/2019 12:00:00 AM EST Unknown if ever smoked comp leted Unknown if ever smoked [facility] ([facility]) Smoking 08/31/2019 12:00:00 AM EST Unknown if ever smoked comp leted Unknown if ever smoked [facility] ([facility]) Smoking 08/03/2019 12:00:00 AM EST Unknown if ever smoked comp leted Unknown if ever smoked [facility] ([facility]) Smoking 07/06/2019 12:00:00 AM EST Unknown if ever smoked comp leted Unknown if ever smoked [facility] ([facility]) Vital Signs ID Date Data Source UNK Name Value Range Interpretation Code Description Data Source(s) Diastolic blood pressure 0 mm[Hg] Normal (applies to non-numeric results) 0 mm[Hg] [facility] ([facility]) Systolic blood pressure 0 mm[Hg] Normal (applies t o non-numeric results) 0 mm[Hg] [facility] Body mass index (BMI) [Ratio] 0.00 kg/m2 No rmal (applies to non-numeric results) 0.00 kg/m2 [facility] Body weight Measured 0.00 lbs Normal (applies to n on-numeric results) 0.00 lbs [facility] ([facility]) Body height 0.00 in Normal (applies to non-numeric resu lts) 0.00 in [facility] ([facility]) Diastolic blood pressure 0 mm[Hg] Normal (applies to non-numeric results) 0 mm[Hg] [facility] ([facility]) Systolic blood pressure 0 mm[Hg] Normal (applies t o non-numeric results) 0 mm[Hg] [facility] ([facility]) Body mass index (BMI) [Ratio] 0.00 kg/m2 No rmal (applies to non-numeric results) 0.00 kg/m2 [facility] ([facility]) Body weight Measured 0.00 lbs Normal (applies to n on-numeric results) 0.00 lbs [facility] ([facility]) Body height 0.00 in Normal (applies to non-numeric resu lts) 0.00 in [facility] ([facility]) Diastolic blood pressure 0 mm[Hg] Normal (applies to non-numeric results) 0 mm[Hg] [facility] ([facility]) Systolic blood pressure 0 mm[Hg] Normal (applies t o non-numeric results) 0 mm[Hg] [facility] ([facility]) Body mass index (BMI) [Ratio] 0.00 kg/m2 No rmal (applies to non-numeric results) 0.00 kg/m2 [facility] ([facility]) Body weight Measured 0.00 lbs Normal (applies to n on-numeric results) 0.00 lbs [facility] ([facility]) Body height 0.00 in Normal (applies to non-numeric resu lts) 0.00 in [facility] ([facility])
[2020-08-10 00:52] LABS: HEMATOCRIT 42.6 % (36.0-47.0); HEMOGLOBIN 14.5 g/dl (12.0-15.5); MEAN CORPUSCULAR VOLUME 85.2 fl (80.0-96.0); PLATELET COUNT, AUTOMATED 201 10^3/uL (150-450); WHITE BLOOD COUNT 8.2 10^3/uL (4.0-10.0)
[2020-08-10 01:17] LABS: HCG, SERUM QUALITATIVE NEGATIVE (NEGATIVE)
--- OUTSIDE RECORDS SUMMARY | 2020-08-10 02:11 | CCD ---
Author Author [facility] Organization [facility] Address Unknown Phone Unavailable Care Team Providers Care Transfusion Nurse Name Role Phone Raul, A Nida PRINCIPAL CLERK Unavailable Unavailable Raul, A Nida PRINCIPAL CLERK Unavailable Unavailable Raul, A Nida PRINCIPAL CLERK Unavailable Unavailable Raul, A Nida PRINCIPAL CLERK Unavailable Unavailable Raul, A Nida PRINCIPAL CLERK Unavailable Unavailable Raul, A Nida PRINCIPAL CLERK Unavailable Unavailable Raul, A Nida PRINCIPAL CLERK Unavailable Unavailable Raul, A Nida PRINCIPAL CLERK Unavailable Unavailable Raul, A Nida PRINCIPAL CLERK Unavailable Unavailable Raul, A Nida PRINCIPAL CLERK Unavailable Unavailable Raul, A Nida PRINCIPAL CLERK Unavailable Unavailable Raul, A Nida PRINCIPAL CLERK Unavailable Unavailable Raul, A Nida PRINCIPAL CLERK Unavailable Unavailable Raul, A Nida PRINCIPAL CLERK Unavailable Unavailable Raul, A Nida PRINCIPAL CLERK Unavailable Unavailable Raul, A Nida PRINCIPAL CLERK Unavailable Unavailable Raul, A Nida PRINCIPAL CLERK Unavailable Unavailable Raul, A Nida PRINCIPAL CLERK Unavailable Unavailable Raul, A Nida PRINCIPAL CLERK Unavailable Unavailable Raul, A Nida PRINCIPAL CLERK Unavailable Unavailable Raul, A Nida PRINCIPAL CLERK Unavailable Unavailable Raul, A Nida PRINCIPAL CLERK Unavailable Unavailable Raul, A Nida PRINCIPAL CLERK Unavailable Unavailable Raul, A Nida PRINCIPAL CLERK Unavailable Unavailable Raul, A Nida PRINCIPAL CLERK Unavailable Unavailable Raul, A Nida PRINCIPAL CLERK Unavailable Unavailable Raul, A Nida PRINCIPAL CLERK Unavailable Unavailable Heide Esparza Unavailable VINCE, H ANAID ACTIVITY DIRECTOR Unavailable Unavailable IVNCE, H ANAID ACTIVITY DIRECTOR Unavailable Unavailable VINCE, H ANAID ACTIVITY DIRECTOR Unavailable Unavailable VINCE, H ANAID ACTIVITY DIRECTOR Unavailable Unavailable VINCE, H ANAID ACTIVITY DIRECTOR Unavailable Unavailable VINCE, H ANAID ACTIVITY DIRECTOR Unavailable Unavailable VINCE, H ANAID ACTIVITY DIRECTOR Unavailable Unavailable Raul, Nida PRINCIPAL CLERK PRINCIPAL CLERK Unavailable Unavailable Re-disclosure Warning The records that [...] is protected by Article 27-F of the [facility] Public Health law. If you continue you may have access to information: Regarding HIV / AIDS; Provided by facilities licensed or operated by the [facility] Office of Mental Health; or Provided by the [facility] Office for People With Developmental Disabilities. If such information is present, then the following [facility] mandated warning applies: This information has been [...] law may result in a fine or [place] sentence or both. A general authorization for [...] Nida DAVID 05/15/2020 03:4 1:02 PM EDT [facility] Outpatient Attender: FRANKIE BEAUCHAMP 04/08/2020 12:02:32 A M EDT [facility] Outpatient Attender: FRANKIE TELLEZP NITO 01/04/2020 07:59:17 P M EDT [facility] Outpatient Attender: ANAID HOUSTON NP [facility] Cruz barsher 01/03/2020 04:30:00 AM EDT - 01/03/2020 04:30:00 AM EDT [facility] ([facility]) Attender: ANAID HOUSTON NP 01/03/2020 12:00:00 AM EDT [facility] ([facility]) [facility]: [facility]14/2019 03:37:00 P M EDT [facility] Outpatient Attender: ANAID HOUSTON NP [facility] brasher 12/01/2019 04:00:00 AM EDT - 12/01/2019 04:00:00 AM EDT [facility] ([facility]) Attender: ANAID HOUSTON NP 12/01/2019 12:00:00 AM EDT [facility] ([facility]) Outpatient Attender: ANAID HOUSTON NP [facility] brasher 11/08/2019 01:30:00 AM EDT - 11/08/2019 01:30:00 AM EDT [facility] ([facility]) Attender: ANAID HOUSTON NP 11/08/2019 12:00:00 AM EDT [facility] ([facility]) Outpatient Attender: Nida BEAUCHAMP 09/23/2019 11:3 3:01 AM [facility] Outpatient Attender: FRANKIE BEAUCHAMP 09/08/2019 03:02:00 P M [facility] 09/08/2019 03:0 1:01 PM EST [facility] Outpatient Attender: ANAID HOUSTON NP [facility] Cruz brasher 09/08/2019 02:30:00 AM EST - 09/08/2019 02:30:00 AM EST [facility] ([facility]) Attender: ANAID HOUSTON NP 09/08/2019 12:00:00 AM EST [facility] ([facility]) Outpatient Attender: ANAID HOUSTON NP [facility] Cruz brasher 08/31/2019 04:00:00 AM EST - 08/31/2019 04:00:00 AM EST [facility] ([facility]) Attender: ANAID HOUSTON NP 08/31/2019 12:00:00 AM EST [facility] ([facility]) Outpatient Attender: ANAID HOUSTON NP [facility] anshu 08/03/2019 05:00:00 AM EST - 08/03/2019 05:00:00 AM EST [facility] ([facility]) Health Monitoring - 30 Min Attender: Heide Esparza [facility] amarjit Colette 08/03/2019 04:30:00 AM EST - 08/03/2019 04:30:00 AM EST [facility] ([facility]) Attender: ANAID HOUSTON NP 08/03/2019 12:00:00 AM EST [facility] ([facility]) Attender: Heide Esparza 08/03/2019 12:00:00 AM EST [facility] ([facility]) Outpatient Attender: Nida DAVID 07/10/2019 11:3 3:01 PM EST [facility] Outpatient 07/06/2019 06:31:00 AM EST [facility] Attender: ANAID HOUSTON NP 07/06/2019 12:00:00 AM EST [facility] ([facility]) Outpatient Attender: ANAID HOUSTON NP [facility] anshu 07/05/2019 05:00:00 AM EST - 07/05/2019 05:00:00 AM EST [facility] ([facility]) Functional Status Medications Medication Brand Name Start Date Product Form Dose Route Admi nistrative Instructions Pharmacy Instructions Status Indications Reaction Description Data Source(s) olanzapine 2.5 MG Oral Tablet [Zyprexa] Zyprexa 12/01/2019 12: 00:00 AM EDT 2.5 mg by mouth completed Zyprexa by mouth [id number] 12/01/2019 01/30/2020 at bedtime 30 2.5 mg tablet 75623 [id number] Russ Houston [id number] Nurse Practitioner [facility] ([facility]) Hydroxyzine Hydrochloride 25 MG Oral Tablet hydroxyzine HCl 12/01/2019 12:00:00 AM EDT 25 mg completed [id number] hydroxyzine HCl 12/01/2019 12/31/2019 three times a day 15 25 mg tablet as needed [id number] 1 [id number] Anaid Houston [id number] Nurse Practitioner [facility]) Prazosin 1 MG Oral Capsule prazosin 12/01/2019 12:00:00 AM EDT 1 mg by mouth completed [id number] prazosin by mouth [id number] 12/01/201911/2019 at bedtime 30 1 mg capsule 85804 [id number] Anaid Houston 3 [id number] Nurse Practitioner [facility] ([facility]) olanzapine 2.5 MG Oral Tablet [Zyprexa] Zyprexa 12/01/2019 12: 00:00 AM EDT 2.5 mg by mouth completed Zyprexa by mouth [id number] 12/01/2019 01/30/2020 at bedtime 30 2.5 mg tablet 77005 [id number] Russ Houston [id number] Nurse Practitioner [facility] ([facility]) Prazosin 1 MG Oral Capsule prazosin 12/01/2019 12:00:00 AM EDT 1 mg by mouth completed [id number] prazosin by mouth [id number] 12/01/201911/2019 at bedtime 30 1 mg capsule 24563 [id number] Anaid Houston 3 [id number] Nurse Practitioner [facility] ([facility]) Clonidine Hydrochloride 0.1 MG Oral Tablet clonidine HCl 12/01/2019 12:00:00 AM EDT 0.1 mg by mouth completed 119574 clonidine HCl by mouth [id number] 12/01/2019 12/07/2019 at bedtime 6 0.1 mg tablet 41646 [id number] Anaid Houston [id number] Nurse Practitioner [facility] ([facility]) Prazosin 1 MG Oral Capsule prazosin 04/22/2019 12:00:00 AM EDT 1 mg by mouth completed [id number] prazosin by mouth [id number] 04/22/201906/2020 at bedtime 30 1 mg capsule 20765 656616 [id number] Anaid Houston 3 [id number] Nurse Practitioner [facility] ([facility]) Fluoxetine 10 MG Oral Capsule fluoxetine 04/22/2019 12:00:00 AM EDT 10 mg by mouth completed [id number] fluoxetine by mouth [id number] 201810/02/2019 every morning 30 10 mg capsule 37939 [id number] Ernesto Houston [id number] Nurse Practitioner [facility] ([facility]) 24 HR Bupropion Hydrochloride 150 MG Extended Release Oral Tablet [Wellbutrin] Wellbutrin XL 04/22/2019 12:00:00 AM EDT 150 mg complete d [id number] Wellbutrin XL 04/22/2019 10/02/2019 every morning 30 150 mg tablet extended release 24 hr 07290 [id number] Anaid Houston [id number] Nurse Practitioner [facility] ([facility]) olanzapine 5 MG Oral Tablet [Zyprexa] Zyprexa 04/22/2019 12:00:00 AM EDT 5 mg by mouth completed [id number] Zyprexa by mouth [id number] 201810/02/2019 at bedtime 30 5 mg tablet 09697 211832 [id number] Anaid Houston [id number] Nurse Practitioner [facility] ([facility]) Fluoxetine 10 MG Oral Capsule fluoxetine 04/22/2019 12:00:00 AM EDT 10 mg by mouth completed 378132 fluoxetine by mouth [id number] 201811/07/2019 every morning 30 10 mg capsule 15368 [id number] Ernesto Houston [id number] Nurse Practitioner [facility] ([facility]) 24 HR Bupropion Hydrochloride 150 MG Extended Release Oral Tablet [Wellbutrin] Wellbutrin XL 04/22/2019 12:00:00 AM EDT 150 mg complete d [id number] Wellbutrin XL 04/22/2019 11/07/2019 every morning 30 150 mg tablet extended release 24 hr 37637 [id number] Anaiditalo Judde [id number] Nurse Practitioner [facility] ([facility]) Insurance Providers Payer name Policy type / Coverage type Policy ID Covered alliance party ID Covered alliance party's relationship to tapia Policy Tapia Plan Information MIO [id number] SP [id number] [place] O [id number] S [id number] Managed [place] P [id number] S [id number] Medicaid S [id number] Man[place] P [id number] S [id number] Man[place] P [id number] S [id number] Medicaid S [id number] S [id number] No Fault [id number] Self [id number] Mio [id number] Self [id number] No Fault [id number] Self [id number] No Fault Self MEDICAID [id number] SP [id number] CIGNA HEALTHCARE [id number] SP [id number] CIGNA/MVP/CONN GEN/PREFE O [id number] S [id number] Cigna/Conn Gen/[employer] Commercial [id number] Self [id number] Cigna/Conn Gen/[employer] [id number] Family Depende nt [id number] Cigna/Conn Gen/[employer] [id number] Self [id number] Cigna/Conn Gen/[employer] Commercial [id number] Self [id number] NO FAULT O [id number] S [id number] NO FAULT [id number] Cigna/Conn Gen/[employer] [id number] Self [id number] Cigna/Conn Gen/[employer] [id number] Self [id number] Cigna/Conn Gen/[employer] Commercial [id number] Self [id number] Cigna/Conn Gen/[employer] Commercial [id number] Self [id number] Cigna/Conn Gen/Equicor Commercial Self CIGNA HEALTHCARE -O/P [id number] 18 [id number] [facility] [id number] [id number] 00 [id number] Cigna Medigap Part B Family Dependent Cigna Medigap Part B BC/BS Of [facility] [employer] [id number] Problems, Conditions, and Diagnoses Code Display Name Description Problem Type Effective Dates Data Source(s) F10.10 Alcohol abuse, uncomplicated Alcohol Use Disorder, Mil d Condition 01/03/2020 12:00:00 AM EDT [facility] ([facility]) F43.12 Post-traumatic stress disorder, chronic Post-traumatic stress disorder, chronic Condition 01/03/2020 12:00:00 AM EDT [facility] ([facility]) F14.20 Cocaine dependence, uncomplicated Stimul ant Use Disorder. Moderate: Cocaine Condition 01/03/2020 12:00:00 AM EDT [facility] ([facility]) F12.20 Cannabis dependence, uncomplicated Cannabis Use Disorder, Moderate Condition 01/03/2020 12:00:00 AM EDT [facility] ([facility]) F33.1 Major depressive disorder, recurrent, mo derate Major Depressive Disorder, Recurrent episode, Moderate Condition 01/03/2020 12:00:00 AM EDT [facility] ([facility]) Surgeries/Procedures Procedure Description Date Indications Data Source(s) MHC Telemed E/M Lvl 3--Est pt 01/03/2020 12:00:00 AM EDT - 01/03/2020 12:00:00 AM EDT [facility] ([facility]) MHC Telemed E/M Lvl 3--Est pt 01/03/2020 12:00:00 AM E DT [facility] ([facility]) OFFICE OUTPATIENT VISIT 15 MINUTES 11/30 12:00:00 AM EDT - 12/01/2019 12:00:00 AM EDT [facility] ([facility]) OFFICE OUTPATIENT VISIT 15 MINUTES 12/01/2019 12:00:00 AM EDT [facility] ([facility]) MHC Telemed E/M Lvl 3--Est pt 11/08/2019 12:00:00 AM EDT - 11/08/2019 12:00:00 AM EDT [facility] ([facility]) MHC Telemed E/M Lvl 3--Est pt 11/08/2019 12:00:00 AM E DT [facility] ([facility]) OFFICE OUTPATIENT VISIT 15 MINUTES 09/08 12:00:00 AM EST - 09/08/2019 12:00:00 AM EST [facility] ([facility]) OFFICE OUTPATIENT VISIT 15 MINUTES 09/08/2019 12:00:00 AM EST [facility] ([facility]) OFFICE OUTPATIENT VISIT 15 MINUTES 08/31 12:00:00 AM EST - 08/31/2019 12:00:00 AM EST [facility] ([facility]) OFFICE OUTPATIENT VISIT 15 MINUTES 08/31/2019 12:00:00 AM EST [facility] ([facility]) OFFICE OUTPATIENT VISIT 15 MINUTES 08/03 12:00:00 AM EST - 08/03/2019 12:00:00 AM EST [facility] ([facility]) OFFICE OUTPATIENT VISIT 15 MINUTES 08/03/2019 12:00:00 AM EST [facility] ([facility]) PREVENT MED BALE PILER&/RISK FACTOR REDJ SPX 30 MIN 08/03/2019 12:00:00 AM EST - 08/03/2019 12:00:00 AM EST [facility] ([facility]) PREVENT MED BALE PILER&/RISK FACTOR REDJ SPX 30 MIN 08/03 12:00:00 AM EST [facility] ([facility]) OFFICE OUTPATIENT VISIT 15 MINUTES 07/06 12:00:00 AM EST - 07/06/2019 12:00:00 AM EST [facility] ([facility]) OFFICE OUTPATIENT VISIT 15 MINUTES 07/05/2019 12:00:00 AM EST [facility] ([facility]) Social History Code Duration Value Status Description Data Source(s ) Smoking 01/03/2020 12:00:00 AM EDT Unknown if ever smoked comp leted Unknown if ever smoked [facility] ([facility]) Smoking 12/01/2019 12:00:00 AM EDT Unknown if ever smoked comp leted Unknown if ever smoked [facility] ([facility]) Smoking 11/08/2019 12:00:00 AM EDT Unknown if ever smoked comp leted Unknown if ever smoked [facility] ([facility]) Smoking 09/08/2019 12:00:00 AM EST Unknown if ever smoked comp leted Unknown if ever smoked [facility] ([facility]) Smoking 08/31/2019 12:00:00 AM EST Unknown if ever smoked comp leted Unknown if ever smoked [facility] ([facility]) Smoking 08/03/2019 12:00:00 AM EST Unknown if ever smoked comp leted Unknown if ever smoked [facility] ([facility]) Smoking 07/06/2019 12:00:00 AM EST Unknown if ever smoked comp leted Unknown if ever smoked [facility] ([facility]) Vital Signs ID Date Data Source UNK Name Value Range Interpretation Code Description Data Source(s) Diastolic blood pressure 0 mm[Hg] Normal (applies to non-numeric results) 0 mm[Hg] [facility] ([facility]) Systolic blood pressure 0 mm[Hg] Normal (applies t o non-numeric results) 0 mm[Hg] [facility] Body mass index (BMI) [Ratio] 0.00 kg/m2 No rmal (applies to non-numeric results) 0.00 kg/m2 [facility] Body weight Measured 0.00 lbs Normal (applies to n on-numeric results) 0.00 lbs [facility] ([facility]) Body height 0.00 in Normal (applies to non-numeric resu lts) 0.00 in [facility] ([facility]) Diastolic blood pressure 0 mm[Hg] Normal (applies to non-numeric results) 0 mm[Hg] [facility] ([facility]) Systolic blood pressure 0 mm[Hg] Normal (applies t o non-numeric results) 0 mm[Hg] [facility] ([facility]) Body mass index (BMI) [Ratio] 0.00 kg/m2 No rmal (applies to non-numeric results) 0.00 kg/m2 [facility] ([facility]) Body weight Measured 0.00 lbs Normal (applies to n on-numeric results) 0.00 lbs [facility] ([facility]) Body height 0.00 in Normal (applies to non-numeric resu lts) 0.00 in [facility] ([facility]) Diastolic blood pressure 0 mm[Hg] Normal (applies to non-numeric results) 0 mm[Hg] [facility] ([facility]) Systolic blood pressure 0 mm[Hg] Normal (applies t o non-numeric results) 0 mm[Hg] [facility] ([facility]) Body mass index (BMI) [Ratio] 0.00 kg/m2 No rmal (applies to non-numeric results) 0.00 kg/m2 [facility] ([facility]) Body weight Measured 0.00 lbs Normal (applies to n on-numeric results) 0.00 lbs [facility] ([facility]) Body height 0.00 in Normal (applies to non-numeric resu lts) 0.00 in [facility] ([facility])
[2020-08-10 02:21] LABS: ALBUMIN 4.2 GM/DL (3.2-5.2); ALT/SGPT 15 U/L (12-78); BILIRUBIN,DIRECT 0.3 MG/DL (0.0-0.2); BILIRUBIN,TOTAL 1.1 MG/DL (0.2-1.0); BLOOD UREA NITROGEN 11 MG/DL (7-18); CARBON DIOXIDE LEVEL 25 MEQ/L (21-32); CHLORIDE LEVEL 108 MEQ/L (98-107); CREATININE FOR GFR 1.02 MG/DL (0.55-1.30); GLOMERULAR FILTRATION RATE > 60.0 (>60); GLUCOSE, FASTING 116 MG/DL (70-100); POTASSIUM SERUM 3.5 MEQ/L (3.5-5.1); SALICYLATE LEVEL < 1.7 MG/DL (5.0-30.0); SODIUM LEVEL 141 MEQ/L (136-145); TOTAL PROTEIN 7.1 GM/DL (6.4-8.2)
[2020-08-10 02:22] LABS: ACETAMINOPHEN LEVEL < 2.0 UG/ML (10.0-30.0); ETHYL ALCOHOL (ETHANOL) < 0.003 % (0.000-0.010)
[2020-08-10] MEDS ORDERED: PRAZ5CAP PO (03:22)
[2020-08-10] MEDS ORDERED: VITATAB73 PO (03:22)
[2020-08-10] MEDS ORDERED: HYDR-643 PO (03:22)
[2020-08-10] MEDS ORDERED: BIOT800T2 PO (03:22)
[2020-08-10 03:40] LABS: AMPHETAMINES LEVEL URINE NEGATIVE (NEGATIVE); BARBITURATES URINE NEGATIVE (NEGATIVE); BENZODIAZEPINES URINE NEGATIVE (NEGATIVE); CANNABINOIDS URINE POSITIVE (NEGATIVE); COCAINE METABOLITE URINE NEGATIVE (NEGATIVE); METHADONE URINE NEGATIVE (NEGATIVE); OPIATES URINE NEGATIVE (NEGATIVE); PHENCYCLIDINE URINE NEGATIVE (NEGATIVE)
[2020-08-10 05:00] VITALS: BP 146/89
[2020-08-10] MEDS ORDERED: hydrOXYzine 10 MG TAB PO ONE (07:45)
== END 2020-08-10 08:57 | disposition home or self-care (01) ==
LOC: M ED 00:23
DX: F43.0 Acute stress reaction (principal); F33.9 Major depressive disorder, recurrent, unspecified; F12.10 Cannabis abuse, uncomplicated; Z88.5 Allergy status to narcotic agent
CPT/HCPCS: 36415; 80048; 80076; 80307; 84443; 84703; 85027; 99284; G0480

== ENCOUNTER 2021-03-03 17:44 | Emergency (ER) | payer OTHER ==
[~2021-03-03 17:44] MED LIST changes: +BIOT800T2 PO; +HYDR-643 PO; +PRAZ5CAP PO; -QUET50TA3 PO; +QUET50TA4 PO; +VITATAB73 PO
[2021-03-03 18:34] LABS: HEMATOCRIT 39.8 % (36.0-47.0); HEMOGLOBIN 14.1 g/dl (12.0-15.5); MEAN CORPUSCULAR HEMOGLOBIN 29.9 pg (27.0-33.0); MEAN CORPUSCULAR HGB CONC 35.4 g/dl (32.0-36.5); MEAN CORPUSCULAR VOLUME 84.5 fl (80.0-96.0); PLATELET COUNT, AUTOMATED 209 10^3/uL (150-450); RED BLOOD COUNT 4.71 10^6/uL (4.00-5.40); WHITE BLOOD COUNT 10.7 10^3/uL (4.0-10.0)
[2021-03-03 18:58] LABS: HCG, SERUM QUALITATIVE NEGATIVE (NEGATIVE)
[2021-03-03 19:11] LABS: ACETAMINOPHEN LEVEL < 2.0 UG/ML (10.0-30.0); ALBUMIN 4.3 GM/DL (3.2-5.2); ALT/SGPT 29 U/L (12-78); BILIRUBIN,DIRECT 0.4 MG/DL (0.0-0.2); BILIRUBIN,TOTAL 1.8 MG/DL (0.2-1.0); BLOOD UREA NITROGEN 15 MG/DL (7-18); CALCIUM LEVEL 8.6 MG/DL (8.5-10.1); CARBON DIOXIDE LEVEL 22 MEQ/L (21-32); CHLORIDE LEVEL 111 MEQ/L (98-107); CREATININE FOR GFR 0.79 MG/DL (0.55-1.30); ETHYL ALCOHOL (ETHANOL) < 0.003 % (0.000-0.010); GLOMERULAR FILTRATION RATE > 60.0 (>60); GLUCOSE, FASTING 132 MG/DL (70-100); POTASSIUM SERUM 3.1 MEQ/L (3.5-5.1); SALICYLATE LEVEL < 1.7 MG/DL (5.0-30.0); SODIUM LEVEL 142 MEQ/L (136-145); TOTAL PROTEIN 6.9 GM/DL (6.4-8.2)
[2021-03-03 20:45] LABS: AMPHETAMINES LEVEL URINE NEGATIVE (NEGATIVE); BARBITURATES URINE NEGATIVE (NEGATIVE); BENZODIAZEPINES URINE NEGATIVE (NEGATIVE); CANNABINOIDS URINE NEGATIVE (NEGATIVE); COCAINE METABOLITE URINE NEGATIVE (NEGATIVE); METHADONE URINE NEGATIVE (NEGATIVE); OPIATES URINE NEGATIVE (NEGATIVE); PHENCYCLIDINE URINE NEGATIVE (NEGATIVE)
[2021-03-03] MEDS ORDERED: LORazepam 1 MG TAB PO ONE (21:00)
[2021-03-03] MEDS ORDERED: diphenhydrAMINE 50MG/ML VIAL (J1200) As Ordered ONE (21:18)
[2021-03-03] MEDS ORDERED: HALOPERIDOL 5MG/ML VIAL (J1630 PER 1) As Ordered ONE (21:18)
[2021-03-03] MEDS ORDERED: LORazepam 2 MG/ML VIAL As Ordered ONE (21:19)
[2021-03-03] MEDS ORDERED: LORazepam 2 MG/ML VIAL IM ONE (21:20)
[2021-03-03] MEDS ORDERED: HALOPERIDOL 5MG/ML VIAL (J1630 PER 1) IM ONE (21:20)
[2021-03-03] MEDS ORDERED: HOME MED LIST COMPLETE! XX SCH (21:20)
[2021-03-03] MEDS ORDERED: diphenhydrAMINE 50MG/ML VIAL (J1200) IM ONE (21:20)
--- NOTE | 2021-03-03 23:18 | REPVR ---
PROCEDURE INFORMATION: Exam: CT Head Without Contrast Exam date and time: 03/03/2021 10:41 PM Age: 25 years old Clinical indication: Injury or trauma; Blunt trauma (contusions or hematomas) TECHNIQUE: Imaging protocol: Computed tomography of the head without contrast. Radiation optimization: All CT scans at this facility use at least one of these dose optimization techniques: automated exposure control; mA and/or kV adjustment per patient size (includes targeted exams where dose is matched to clinical indication); or iterative reconstruction. COMPARISON: CT Head without contrast 05/14/2020 7:58 AM FINDINGS: Brain: Normal. No hemorrhage. Unremarkable white matter. No mass effect. Cerebral ventricles: No ventriculomegaly. Paranasal sinuses: Visualized sinuses are unremarkable. No fluid levels. Mastoid air cells: Visualized mastoid air cells are well aerated. Bones/joints: Unremarkable. No acute fracture. Soft tissues: Unremarkable. IMPRESSION: No acute intracranial abnormality. Electronically signed by: Nelson Solis On 03/03/2021 23:18:04 PM
[2021-03-04 05:15] VITALS: BP 117/58
== END 2021-03-04 12:01 | disposition home or self-care (01) ==
LOC: M ED 17:44
DX: F19.10 Other psychoactive substance abuse, uncomplicated (principal); F29 Unspecified psychosis not due to a substance or known physiological condition; F33.9 Major depressive disorder, recurrent, unspecified
CPT/HCPCS: 36415; 70450; 80048; 80076; 80143; 80307; 82077; 84443; 84703; 85027; 96372; 99285; J1200; J1630; J2060

== ENCOUNTER 2022-05-23 11:48 | Emergency (ER) | payer OTHER ==
[~2022-05-23] VITALS: Ht 170.2 cm; Wt 64.0 kg
[2022-05-23] MEDS ORDERED: OLANZapine INTRAMUSCULAR 10MG VIAL IM ONE (11:55)
[2022-05-23] MEDS ORDERED: MIDAZOLAM 5MG/ML 1ML VIAL (J2250 PER 1MG) As Ordered ONE (11:56)
[2022-05-23] MEDS ORDERED: MIDAZOLAM INJ 2MG/2ML VIAL (J2250 PER 1MG) IM ONE (12:15)
[2022-05-23 12:32] LABS: HEMATOCRIT 43.9 % (36.0-47.0); HEMOGLOBIN 14.6 g/dl (12.0-15.5); MEAN CORPUSCULAR HEMOGLOBIN 30.4 pg (27.0-33.0); MEAN CORPUSCULAR HGB CONC 33.3 g/dl (32.0-36.5); MEAN CORPUSCULAR VOLUME 91.3 fl (80.0-96.0); PLATELET COUNT, AUTOMATED 202 10^3/uL (150-450); RED BLOOD COUNT 4.81 10^6/uL (4.00-5.40); WHITE BLOOD COUNT 14.8 10^3/uL (4.0-10.0)
[2022-05-23] MEDS ORDERED: MIDAZOLAM INJ 2MG/2ML VIAL (J2250 PER 1MG) IV STA ×2 (12:33→13:19)
[2022-05-23 13:03] LABS: HCG, SERUM QUALITATIVE NEGATIVE (NEGATIVE)
[2022-05-23 13:22] LABS: ACETAMINOPHEN LEVEL < 2.0 UG/ML (10.0-30.0); ALBUMIN 4.5 GM/DL (3.2-5.2); ALT/SGPT 26 U/L (12-78); BILIRUBIN,DIRECT 0.2 MG/DL (0.0-0.2); BILIRUBIN,TOTAL 0.6 MG/DL (0.2-1.0); BLOOD UREA NITROGEN 14 MG/DL (7-18); CALCIUM LEVEL 9.5 MG/DL (8.5-10.1); CARBON DIOXIDE LEVEL 14 MEQ/L (21-32); CHLORIDE LEVEL 107 MEQ/L (98-107); CREATININE FOR GFR 1.09 MG/DL (0.55-1.30); ETHYL ALCOHOL (ETHANOL) < 0.003 % (0.000-0.010); GLOMERULAR FILTRATION RATE > 60.0 (>60); GLUCOSE, FASTING 219 MG/DL (70-100); SALICYLATE LEVEL < 1.7 MG/DL (5.0-30.0); SODIUM LEVEL 141 MEQ/L (136-145); TOTAL PROTEIN 7.4 GM/DL (6.4-8.2)
[2022-05-23 15:26] LABS: RSV AMPLIFICATION NEGATIVE (NEGATIVE)
[2022-05-23 16:00] VITALS: BP 112/66
== END 2022-05-23 17:13 | disposition home or self-care (01) ==
LOC: M ED 11:48
DX: F19.129 Other psychoactive substance abuse with intoxication, unspecified (principal); F43.0 Acute stress reaction; F32.A Depression, unspecified; F12.10 Cannabis abuse, uncomplicated; Z88.5 Allergy status to narcotic agent
CPT/HCPCS: 80048; 80076; 80143; 82077; 82550; 84443; 84703; 85027; 87631; 93005; 96372; 96374; 96375; 99285; J2250

== ENCOUNTER 2022-07-20 17:08 | Emergency (ER) | payer OTHER ==
[~2022-07-20] VITALS: Ht 177.8 cm; Wt 63.6 kg
[2022-07-20] MEDS ORDERED: diazePAM 5MG TABLET PO ONE (17:15)
[2022-07-20 20:51] LABS: HEMATOCRIT 44.6 % (36.0-47.0); HEMOGLOBIN 14.7 g/dl (12.0-15.5); MEAN CORPUSCULAR HEMOGLOBIN 29.3 pg (27.0-33.0); PLATELET COUNT, AUTOMATED 224 10^3/uL (150-450); RED BLOOD COUNT 5.01 10^6/uL (4.00-5.40); WHITE BLOOD COUNT 9.4 10^3/uL (4.0-10.0)
[2022-07-20 21:09] LABS: BARBITURATES URINE NEGATIVE (NEGATIVE); CANNABINOIDS URINE NEGATIVE (NEGATIVE); COCAINE METABOLITE URINE NEGATIVE (NEGATIVE); METHADONE URINE NEGATIVE (NEGATIVE); PHENCYCLIDINE URINE NEGATIVE (NEGATIVE)
[2022-07-20 21:17] LABS: ETHYL ALCOHOL (ETHANOL) 0.004 % (0.000-0.010)
[2022-07-20 21:19] LABS: ACETAMINOPHEN LEVEL < 2.0 UG/ML (10.0-20.0); ALBUMIN 3.9 G/DL (3.2-5.2); ALKALINE PHOSPHATASE 76 U/L (46-116); ALT/SGPT 20 U/L (7.0-40); AST/SGOT 29 U/L (<34); BILIRUBIN,DIRECT 0.2 MG/DL (<0.4); BILIRUBIN,TOTAL 0.6 MG/DL (0.3-1.2); BLOOD UREA NITROGEN 12 MG/DL (9-23); CALCIUM LEVEL 8.7 MG/DL (8.5-10.1); CARBON DIOXIDE LEVEL 30 MMOL/L (20-31); CHLORIDE LEVEL 103 MMOL/L (98-107); CREATININE FOR GFR 0.55 MG/DL (0.55-1.30); GLOMERULAR FILTRATION RATE > 60.0 (>60); GLUCOSE, FASTING 86 MG/DL (60-100); RSV AMPLIFICATION NEGATIVE (NEGATIVE); SALICYLATE LEVEL < 3.0 MG/DL (<30); SODIUM LEVEL 141 MMOL/L (136-145); TOTAL PROTEIN 6.7 G/DL (5.7-8.2)
[2022-07-20 21:34] LABS: HCG, SERUM QUALITATIVE NEGATIVE (NEGATIVE)
[2022-07-20 21:35] LABS: AMPHETAMINES LEVEL URINE POSITIVE (NEGATIVE); BENZODIAZEPINES URINE POSITIVE (NEGATIVE); OPIATES URINE POSITIVE (NEGATIVE)
[2022-07-21 06:44] VITALS: BP 111/71
[2022-07-21] MEDS ORDERED: IBUPROFEN 100MG 5ML ORAL SUSP UDC PO ONE (10:50)
== END 2022-07-21 20:29 | disposition home or self-care (01) ==
LOC: M ED 17:08
DX: F32.A Depression, unspecified (principal); R44.3 Hallucinations, unspecified

== ENCOUNTER 2022-08-20 11:29 | Inpatient (IN) | payer OTHER ==
[~2022-08-20] VITALS: Ht 177.8 cm; Wt 54.7 kg
[2022-08-20] MEDS ORDERED: MIDAZOLAM INJ 2MG/2ML VIAL IM ONE (11:50)
[2022-08-20] MEDS ORDERED: OLANZapine INTRAMUSCULAR 10MG VIAL IM ONE (11:50)
[2022-08-20] MEDS ORDERED: MIDAZOLAM 5MG/ML 1ML VIAL IM ONE ×2 (12:15→14:40)
[2022-08-20 15:40] LABS: HEMATOCRIT 43.5 % (36.0-47.0); HEMOGLOBIN 14.9 g/dl (12.0-15.5); MEAN CORPUSCULAR HEMOGLOBIN 29.5 pg (27.0-33.0); MEAN CORPUSCULAR HGB CONC 34.3 g/dl (32.0-36.5); MEAN CORPUSCULAR VOLUME 86.1 fl (80.0-96.0); PLATELET COUNT, AUTOMATED 299 10^3/uL (150-450); RED BLOOD COUNT 5.05 10^6/uL (4.00-5.40); WHITE BLOOD COUNT 20.2 10^3/uL (4.0-10.0)
[2022-08-20 16:03] LABS: ETHYL ALCOHOL (ETHANOL) 0.005 % (0.000-0.010)
[2022-08-20 16:05] LABS: ACETAMINOPHEN LEVEL < 2.0 UG/ML (10.0-20.0); ALBUMIN 4.1 G/DL (3.2-5.2); ALKALINE PHOSPHATASE 73 U/L (46-116); ALT/SGPT 42 U/L (7.0-40); AST/SGOT 63 U/L (<34); BILIRUBIN,DIRECT 0.4 MG/DL (<0.4); BILIRUBIN,TOTAL 1.2 MG/DL (0.3-1.2); BLOOD UREA NITROGEN 13 MG/DL (9-23); CALCIUM LEVEL 9.1 MG/DL (8.5-10.1); CARBON DIOXIDE LEVEL 24 MMOL/L (20-31); CHLORIDE LEVEL 105 MMOL/L (98-107); CPK CREATINE PHOSPHOKINASE 632 U/L (34-145); CREATININE FOR GFR 0.72 MG/DL (0.55-1.30); GLOMERULAR FILTRATION RATE > 60.0 (>60); GLUCOSE, FASTING 75 MG/DL (60-100); POTASSIUM SERUM 3.8 MMOL/L (3.5-5.1); SALICYLATE LEVEL < 3.0 MG/DL (<30); SODIUM LEVEL 140 MMOL/L (136-145); TOTAL PROTEIN 6.9 G/DL (5.7-8.2)
[2022-08-20 16:07] LABS: THYROID STIMULATING HORMONE 5.976 uIU/ML (0.55-4.78)
[2022-08-20] MEDS: MUPIROCIN 2% OINT 22 GM TUBE TOP SCH (21:00)
[2022-08-21 06:28] LABS: BASO % 0.3 % (0.0-1.0); EOS % 0.4 % (0.0-3.0); HEMATOCRIT 41.8 % (36.0-47.0); LYMPH # 1.7 10^3/uL (1.5-5.0); LYMPH % 16.7 % (24.0-44.0); MEAN CORPUSCULAR HGB CONC 33.5 g/dl (32.0-36.5); MEAN CORPUSCULAR VOLUME 86.5 fl (80.0-96.0); MONO # 0.7 10^3/uL (0.0-0.8); MONO % 7.3 % (2.0-8.0); NEUTROPHILS # 7.6 10^3/uL (1.5-8.5); NEUTROPHILS % 74.9 % (36.0-66.0); PLATELET COUNT, AUTOMATED 273 10^3/uL (150-450); RED BLOOD COUNT 4.83 10^6/uL (4.00-5.40); WHITE BLOOD COUNT 10.1 10^3/uL (4.0-10.0)
[2022-08-21 07:00] LABS: CPK CREATINE PHOSPHOKINASE 302 U/L (34-145)
[2022-08-21 08:30] LABS: HCG, SERUM QUALITATIVE NEGATIVE (NEGATIVE)
[2022-08-21 09:13] LABS: BARBITURATES URINE NEGATIVE (NEGATIVE); COCAINE METABOLITE URINE NEGATIVE (NEGATIVE); METHADONE URINE NEGATIVE (NEGATIVE); OPIATES URINE NEGATIVE (NEGATIVE); PHENCYCLIDINE URINE NEGATIVE (NEGATIVE)
[2022-08-21 09:14] LABS: CANNABINOIDS URINE NEGATIVE (NEGATIVE)
[2022-08-21 09:24] LABS: AMPHETAMINES LEVEL URINE POSITIVE (NEGATIVE); BENZODIAZEPINES URINE POSITIVE (NEGATIVE)
[2022-08-21] MEDS: MUPIROCIN 2% OINT 22 GM TUBE TOP SCH (09:57)
[2022-08-21] MEDS ORDERED: HOME MED LIST COMPLETE! XX SCH (13:55)
[2022-08-21] MEDS ORDERED: OLANZapine ORAL DISINTEGRATING TAB 5MG PO PRN (14:10)
[2022-08-21] MEDS ORDERED: MOM 30ML SUSPENSION UDC PO PRN (14:10)
[2022-08-21] MEDS ORDERED: MAALOX 30 ML SUSP *UDC PO PRN (14:10)
[2022-08-21] MEDS: ACETAMINOPHEN TAB 650MG DOSE (2X325MG) PO PRN (15:26)
[2022-08-21 16:04] VITALS: BP 123/83
[2022-08-22 06:25] VITALS: BP 118/71
[2022-08-22] MEDS: NICOTINE 21MG/24HR 1 EA TRANSDERMAL TD SCH (08:50)
[2022-08-22] MEDS ORDERED: BACITRACIN OINTMENT 30GM TUBE TOP SCH (09:00)
[2022-08-22] MEDS ORDERED: traMADol 50 MG TAB PO ONE (11:15)
[2022-08-22 12:13] LABS: INR 0.97; PROTHROMBIN TIME 13.1 SECONDS (12.5-14.5)
[2022-08-22 12:14] LABS: PARTIAL THROMBOPLASTIN TIME 29.2 SECONDS (24.8-34.2)
[2022-08-22 12:17] LABS: MAGNESIUM LEVEL 1.9 MG/DL (1.8-2.4)
[2022-08-22 12:18] LABS: PHOSPHORUS LEVEL 3.1 MG/DL (2.5-4.9)
[2022-08-22 12:22] LABS: FREE T4 1.05 NG/DL (0.89-1.76); TOTAL T3 79.4 NG/DL (60.0-181.0)
[2022-08-22] MEDS: BACITRACIN OINTMENT 30GM TUBE TOP SCH (15:40)
[2022-08-22] MEDS: OLANZapine 5 MG TAB PO SCH ×2 (15:40→21:34)
[2022-08-22 16:00] LABS: HEPATITIS B SURFACE ANTIGEN NEGATIVE (NEGATIVE)
[2022-08-22 16:22] LABS: HEPATITIS B CORE ANTIBODY IGM NEGATIVE (NEGATIVE); HEPATITIS C VIRUS ABY INDEX < 0.0 INDEX (<0.8)
[2022-08-22 16:23] LABS: ALBUMIN 3.4 G/DL (3.2-5.2); ALKALINE PHOSPHATASE 65 U/L (46-116); ALT/SGPT 34 U/L (7.0-40); AST/SGOT 34 U/L (<34); BILIRUBIN,TOTAL 0.9 MG/DL (0.3-1.2); BLOOD UREA NITROGEN 12 MG/DL (9-23); CALCIUM LEVEL 8.9 MG/DL (8.5-10.1); CARBON DIOXIDE LEVEL 29 MMOL/L (20-31); CHLORIDE LEVEL 105 MMOL/L (98-107); CREATININE FOR GFR 0.63 MG/DL (0.55-1.30); GLOMERULAR FILTRATION RATE > 60.0 (>60); GLUCOSE, FASTING 109 MG/DL (60-100); POTASSIUM SERUM 4.2 MMOL/L (3.5-5.1); SODIUM LEVEL 138 MMOL/L (136-145); TOTAL PROTEIN 6.2 G/DL (5.7-8.2)
[2022-08-22 19:06] VITALS: BP 128/67
[2022-08-23 06:50] VITALS: BP 168/82
[2022-08-23] MEDS: ACETAMINOPHEN TAB 650MG DOSE (2X325MG) PO PRN (08:16)
[2022-08-23] MEDS: OLANZapine 5 MG TAB PO SCH ×2 (08:16→20:51)
[2022-08-23] MEDS: BACITRACIN OINTMENT 30GM TUBE TOP SCH (08:17)
[2022-08-23] MEDS: NICOTINE 21MG/24HR 1 EA TRANSDERMAL TD SCH (08:18)
[2022-08-23 17:22] VITALS: BP 126/61
[2022-08-24 06:30] VITALS: BP 144/67
[2022-08-24] MEDS: BACITRACIN OINTMENT 30GM TUBE TOP SCH (10:09)
[2022-08-24] MEDS: NICOTINE 21MG/24HR 1 EA TRANSDERMAL TD SCH (10:10)
[2022-08-24] MEDS: ACETAMINOPHEN TAB 650MG DOSE (2X325MG) PO PRN ×2 (10:11→18:45)
[2022-08-24] MEDS: OLANZapine 5 MG TAB PO SCH ×2 (10:11→21:16)
[2022-08-24 17:15] VITALS: BP 123/67
[2022-08-24] MEDS: traZODone 50 MG TAB PO PRN (21:16)
[2022-08-25] MEDS: OLANZapine 5 MG TAB PO SCH ×2 (09:56→21:16)
[2022-08-25] MEDS: BACITRACIN OINTMENT 30GM TUBE TOP SCH (09:57)
[2022-08-25] MEDS: NICOTINE 21MG/24HR 1 EA TRANSDERMAL TD SCH (09:57)
[2022-08-25] MEDS: ACETAMINOPHEN TAB 650MG DOSE (2X325MG) PO PRN ×2 (09:58→21:15)
[2022-08-25 20:26] VITALS: BP 133/82
[2022-08-25] MEDS: traZODone 50 MG TAB PO PRN (21:16)
[2022-08-26 06:07] VITALS: BP 139/77
[2022-08-26] MEDS: BACITRACIN OINTMENT 30GM TUBE TOP SCH (09:03)
[2022-08-26] MEDS: OLANZapine 5 MG TAB PO SCH ×2 (09:04→21:51)
[2022-08-26] MEDS: ACETAMINOPHEN TAB 650MG DOSE (2X325MG) PO PRN ×2 (09:04→21:52)
[2022-08-26] MEDS: NICOTINE 21MG/24HR 1 EA TRANSDERMAL TD SCH (09:05)
[2022-08-26 17:26] VITALS: BP 140/77
[2022-08-26] MEDS: traZODone 50 MG TAB PO PRN (21:51)
[2022-08-27 06:19] VITALS: BP 133/60
[2022-08-27] MEDS ORDERED: OLAN1TAB16 PO (08:24)
[2022-08-27] MEDS ORDERED: BACI50OI TOP (08:24)
[2022-08-27] MEDS ORDERED: NICO21PAT TD (08:24)
[2022-08-27] MEDS: OLANZapine 5 MG TAB PO SCH (09:01)
[2022-08-27] MEDS: NICOTINE 21MG/24HR 1 EA TRANSDERMAL TD SCH (09:01)
[2022-08-27] MEDS: ACETAMINOPHEN TAB 650MG DOSE (2X325MG) PO PRN (09:02)
[2022-08-27] MEDS: BACITRACIN OINTMENT 30GM TUBE TOP SCH (09:03)
== END 2022-08-27 13:40 | disposition home or self-care (01) | DRG 751 ==
LOC: M ED 11:29 → M ED INP 08-21 14:08 → M PSY 08-21 14:08
PROVIDERS: ADMIT Student in an Organized Health Care Education/Training Program; ATTEND Psychiatry & Neurology Psychiatry
DX: F29 Unspecified psychosis not due to a substance or known physiological condition (principal); M62.82 Rhabdomyolysis; F43.10 Post-traumatic stress disorder, unspecified; F17.200 Nicotine dependence, unspecified, uncomplicated; F15.90 Other stimulant use, unspecified, uncomplicated; T33.831A Superficial frostbite of right toe(s), initial encounter; T33.832A Superficial frostbite of left toe(s), initial encounter; Z88.8 Allergy status to other drugs, medicaments and biological substances; X31.XXXA Exposure to excessive natural cold, initial encounter

== ENCOUNTER → 2022-10-22 | Emergency (ER) | payer OTHER ==
[~2022-10-22] VITALS: Ht 177.8 cm; Wt 60.1 kg
[~2022-10-22] MED LIST changes: +BACI50OI TOP; +NICO21PAT TD; +OLAN1TAB16 PO
[2022-10-22 07:08] VITALS: BP 129/82
== END | disposition left against medical advice (07) ==
LOC: M ED 07:07
DX: M79.673 Pain in unspecified foot (principal); Z53.21 Procedure and treatment not carried out due to patient leaving prior to being seen by health care provider

== ENCOUNTER 2022-11-01 10:16 | Inpatient (IN) | payer OTHER ==
[~2022-11-01] VITALS: Ht 175.3 cm; Wt 62.4 kg
[2022-11-01 12:19] LABS: HEMOGLOBIN 16.4 g/dl (12.0-15.5); MEAN CORPUSCULAR HEMOGLOBIN 29.1 pg (27.0-33.0); MEAN CORPUSCULAR HGB CONC 34.9 g/dl (32.0-36.5); MEAN CORPUSCULAR VOLUME 83.3 fl (80.0-96.0); PLATELET COUNT, AUTOMATED 247 10^3/uL (150-450); RED BLOOD COUNT 5.64 10^6/uL (4.00-5.40); WHITE BLOOD COUNT 10.6 10^3/uL (4.0-10.0)
[2022-11-01 12:41] LABS: HCG, SERUM QUALITATIVE NEGATIVE (NEGATIVE)
[2022-11-01 12:47] LABS: ETHYL ALCOHOL (ETHANOL) < 0.003 % (0.000-0.010)
[2022-11-01 12:49] LABS: SALICYLATE LEVEL < 3.0 MG/DL (<30)
[2022-11-01 12:50] LABS: ACETAMINOPHEN LEVEL < 2.0 UG/ML (10.0-20.0); ALBUMIN 4.6 G/DL (3.2-5.2); ALKALINE PHOSPHATASE 81 U/L (46-116); ALT/SGPT 78 U/L (7.0-40); AST/SGOT 56 U/L (<34); BILIRUBIN,DIRECT 0.5 MG/DL (<0.4); BILIRUBIN,TOTAL 1.4 MG/DL (0.3-1.2); BLOOD UREA NITROGEN 21 MG/DL (9-23); CALCIUM LEVEL 10.2 MG/DL (8.5-10.1); CARBON DIOXIDE LEVEL 25 MMOL/L (20-31); CHLORIDE LEVEL 104 MMOL/L (98-107); CREATININE FOR GFR 0.72 MG/DL (0.55-1.30); GLOMERULAR FILTRATION RATE > 60.0 (>60); GLUCOSE, FASTING 61 MG/DL (60-100); POTASSIUM SERUM 3.7 MMOL/L (3.5-5.1); SODIUM LEVEL 140 MMOL/L (136-145); TOTAL PROTEIN 7.5 G/DL (5.7-8.2)
[2022-11-01 12:52] LABS: THYROID STIMULATING HORMONE 1.315 uIU/ML (0.55-4.78)
[2022-11-01] MEDS ORDERED: HOME MED LIST COMPLETE! XX SCH (16:55)
[2022-11-01] MEDS ORDERED: diphenhydrAMINE 50MG/ML VIAL As Ordered ONE (16:58)
[2022-11-01] MEDS ORDERED: MIDAZOLAM INJ 2MG/2ML VIAL IM ONE (17:00)
[2022-11-01] MEDS ORDERED: HALOPERIDOL 5MG/ML 1ML VIAL IM ONE (17:00)
[2022-11-01] MEDS ORDERED: diphenhydrAMINE 50MG/ML VIAL IM ONE (17:00)
[2022-11-01 20:28] LABS: BARBITURATES URINE NEGATIVE (NEGATIVE); CANNABINOIDS URINE NEGATIVE (NEGATIVE); COCAINE METABOLITE URINE NEGATIVE (NEGATIVE); METHADONE URINE NEGATIVE (NEGATIVE); OPIATES URINE NEGATIVE (NEGATIVE); PHENCYCLIDINE URINE NEGATIVE (NEGATIVE)
[2022-11-01 20:31] LABS: AMPHETAMINES LEVEL URINE POSITIVE (NEGATIVE); BENZODIAZEPINES URINE POSITIVE (NEGATIVE)
[2022-11-02] MEDS ORDERED: OLANZapine ORAL DISINTEGRATING TAB 5MG PO PRN (01:15)
[2022-11-02] MEDS ORDERED: MOM 30ML SUSPENSION UDC PO PRN (01:15)
[2022-11-02] MEDS ORDERED: MAALOX 30 ML SUSP *UDC PO PRN (01:15)
[2022-11-02] MEDS: ACETAMINOPHEN TAB 650MG DOSE (2X325MG) PO PRN (05:55)
[2022-11-02 06:00] VITALS: BP 118/67
[2022-11-02] MEDS: LORazepam 0.5 MG TAB PO SCH ×2 (13:07→21:32)
[2022-11-02 18:00] VITALS: BP 135/70
[2022-11-02] MEDS: traZODone 50 MG TAB PO PRN (21:32)
[2022-11-03 06:07] VITALS: BP 119/75
[2022-11-03] MEDS: LORazepam 0.5 MG TAB PO SCH ×2 (09:59→20:26)
[2022-11-03] MEDS: IBUPROFEN 400MG TAB PO PRN (18:13)
[2022-11-03] MEDS: traZODone 50 MG TAB PO PRN (20:25)
[2022-11-04 06:24] VITALS: BP 122/80
[2022-11-04] MEDS: LORazepam 0.5 MG TAB PO SCH (08:03)
[2022-11-04] MEDS: IBUPROFEN 400MG TAB PO PRN ×2 (08:04→15:40)
[2022-11-04 17:52] VITALS: BP 168/89
[2022-11-04] MEDS: OLANZapine 10 MG TAB PO SCH (22:33)
[2022-11-04] MEDS: traZODone 50 MG TAB PO PRN (22:33)
[2022-11-05 06:26] VITALS: BP 141/90
[2022-11-05] MEDS: IBUPROFEN 400MG TAB PO PRN ×3 (10:02→21:33)
[2022-11-05 16:33] VITALS: BP 139/73
[2022-11-05] MEDS: traZODone 50 MG TAB PO PRN (21:32)
[2022-11-05] MEDS: OLANZapine 10 MG TAB PO SCH (21:32)
[2022-11-06 06:43] VITALS: BP 136/72
[2022-11-06] MEDS: IBUPROFEN 400MG TAB PO PRN ×3 (10:10→22:19)
[2022-11-06] MEDS: NICOTINE 14 MG/24 HR TRANSDERMAL TD SCH (14:34)
[2022-11-06 17:59] VITALS: BP 128/71
[2022-11-06] MEDS: traZODone 50 MG TAB PO PRN (21:49)
[2022-11-06] MEDS: OLANZapine 10 MG TAB PO SCH (21:49)
[2022-11-07] MEDS: NICOTINE 14 MG/24 HR TRANSDERMAL TD SCH (09:42)
[2022-11-07] MEDS: IBUPROFEN 400MG TAB PO PRN ×2 (09:42→21:17)
[2022-11-07] MEDS: ACETAMINOPHEN TAB 650MG DOSE (2X325MG) PO PRN (15:03)
[2022-11-07 18:52] VITALS: BP 133/83
[2022-11-07] MEDS: traZODone 50 MG TAB PO PRN (21:17)
[2022-11-07] MEDS: OLANZapine 10 MG TAB PO SCH (21:17)
[2022-11-08 05:59] VITALS: BP 128/60
[2022-11-08 06:00] VITALS: BP 128/60
[2022-11-08] MEDS: ACETAMINOPHEN TAB 650MG DOSE (2X325MG) PO PRN (07:06)
[2022-11-08] MEDS: NICOTINE 14 MG/24 HR TRANSDERMAL TD SCH (09:00)
[2022-11-08] MEDS ORDERED: OLAN1TAB20 PO (11:40)
[2022-11-08] MEDS ORDERED: TRAZ-252 PO (11:40)
[2022-11-08] MEDS ORDERED: NICO14PA TD (11:40)
== END 2022-11-08 13:27 | disposition home or self-care (01) | DRG 751 ==
LOC: M ED 10:16 → M ED INP 11-02 01:11 → M PSY 11-02 05:17
PROVIDERS: ADMIT Student in an Organized Health Care Education/Training Program; ATTEND Student in an Organized Health Care Education/Training Program
DX: F29 Unspecified psychosis not due to a substance or known physiological condition (principal); F17.200 Nicotine dependence, unspecified, uncomplicated; F43.10 Post-traumatic stress disorder, unspecified; F13.90 Sedative, hypnotic, or anxiolytic use, unspecified, uncomplicated; T33.831S Superficial frostbite of right toe(s), sequela; F15.90 Other stimulant use, unspecified, uncomplicated; T33.832S Superficial frostbite of left toe(s), sequela; R74.01 Elevation of levels of liver transaminase levels; Z88.5 Allergy status to narcotic agent; Z20.822 Contact with and (suspected) exposure to COVID-19

== ENCOUNTER 2022-12-29 22:04 | Emergency (ER) | payer OTHER ==
[~2022-12-29] VITALS: Ht 175.3 cm; Wt 55.6 kg
[~2022-12-29 22:04] MED LIST changes: +NICO14PA TD; +OLAN1TAB20 PO; +TRAZ-252 PO
[2022-12-29 22:42] LABS: BASO % 0.7 % (0.0-1.0); EOS % 0.3 % (0.0-3.0); HEMATOCRIT 41.1 % (36.0-47.0); HEMOGLOBIN 14.3 g/dl (12.0-15.5); LYMPH # 1.5 10^3/uL (1.5-5.0); LYMPH % 24.3 % (24.0-44.0); MEAN CORPUSCULAR HGB CONC 34.8 g/dl (32.0-36.5); MEAN CORPUSCULAR VOLUME 83.4 fl (80.0-96.0); MONO # 0.6 10^3/uL (0.0-0.8); MONO % 9.6 % (2.0-8.0); NEUTROPHILS # 3.9 10^3/uL (1.5-8.5); NEUTROPHILS % 64.3 % (36.0-66.0); PLATELET COUNT, AUTOMATED 239 10^3/uL (150-450); RED BLOOD COUNT 4.93 10^6/uL (4.00-5.40); WHITE BLOOD COUNT 6.1 10^3/uL (4.0-10.0)
[2022-12-29 23:01] LABS: ETHYL ALCOHOL (ETHANOL) < 0.003 % (0.000-0.010)
[2022-12-29 23:02] LABS: ACETAMINOPHEN LEVEL < 2.0 UG/ML (10.0-20.0); ALBUMIN 4.3 G/DL (3.2-5.2); ALKALINE PHOSPHATASE 60 U/L (46-116); ALT/SGPT 42 U/L (7.0-40); AST/SGOT 22 U/L (<34); BILIRUBIN,DIRECT 0.4 MG/DL (<0.4); BILIRUBIN,TOTAL 1.2 MG/DL (0.3-1.2); BLOOD UREA NITROGEN 14 MG/DL (9-23); CALCIUM LEVEL 8.8 MG/DL (8.5-10.1); CARBON DIOXIDE LEVEL 23 MMOL/L (20-31); CHLORIDE LEVEL 105 MMOL/L (98-107); GLOMERULAR FILTRATION RATE > 60.0 (>60); GLUCOSE, FASTING 189 MG/DL (60-100); POTASSIUM SERUM 3.4 MMOL/L (3.5-5.1); SALICYLATE LEVEL < 3.0 MG/DL (<30); SODIUM LEVEL 140 MMOL/L (136-145); TOTAL PROTEIN 7.4 G/DL (5.7-8.2)
[2022-12-29 23:05] LABS: THYROID STIMULATING HORMONE 2.127 uIU/ML (0.55-4.78)
[2022-12-29 23:07] LABS: CPK CREATINE PHOSPHOKINASE 102 U/L (34-145)
[2022-12-30] MEDS ORDERED: NS 1,000 ML IV ONE (00:20)
[2022-12-30 01:06] LABS: AMPHETAMINES LEVEL URINE POSITIVE (NEGATIVE); BARBITURATES URINE NEGATIVE (NEGATIVE); BENZODIAZEPINES URINE POSITIVE (NEGATIVE); CANNABINOIDS URINE NEGATIVE (NEGATIVE); COCAINE METABOLITE URINE NEGATIVE (NEGATIVE); METHADONE URINE NEGATIVE (NEGATIVE); OPIATES URINE NEGATIVE (NEGATIVE); PHENCYCLIDINE URINE NEGATIVE (NEGATIVE)
[2022-12-30 04:30] VITALS: BP 152/89
== END 2022-12-30 04:35 | disposition home or self-care (01) ==
LOC: M ED 22:04
DX: F19.129 Other psychoactive substance abuse with intoxication, unspecified (principal); F17.200 Nicotine dependence, unspecified, uncomplicated; F10.10 Alcohol abuse, uncomplicated; Z88.5 Allergy status to narcotic agent; Z79.83 Long term (current) use of bisphosphonates; Z79.899 Other long term (current) drug therapy

== ENCOUNTER 2023-02-22 09:42 | Inpatient (IN) | payer MEDICAID, OTHER ==
[~2023-02-22] VITALS: Ht 177.8 cm; Wt 54.5 kg
[2023-02-22 10:47] LABS: HEMATOCRIT 42.4 % (36.0-47.0); HEMOGLOBIN 14.1 g/dl (12.0-15.5); MEAN CORPUSCULAR HEMOGLOBIN 28.8 pg (27.0-33.0); MEAN CORPUSCULAR HGB CONC 33.3 g/dl (32.0-36.5); MEAN CORPUSCULAR VOLUME 86.5 fl (80.0-96.0); PLATELET COUNT, AUTOMATED 230 10^3/uL (150-450); WHITE BLOOD COUNT 8.8 10^3/uL (4.0-10.0)
[2023-02-22 11:15] LABS: ETHYL ALCOHOL (ETHANOL) < 0.003 % (0.000-0.010)
[2023-02-22 11:17] LABS: ACETAMINOPHEN LEVEL < 2.0 UG/ML (10.0-20.0); ALBUMIN 3.9 G/DL (3.2-5.2); ALKALINE PHOSPHATASE 80 U/L (46-116); ALT/SGPT 219 U/L (7.0-40); AST/SGOT 58 U/L (<34); BILIRUBIN,DIRECT 0.5 MG/DL (<0.4); BILIRUBIN,TOTAL 1.4 MG/DL (0.3-1.2); BLOOD UREA NITROGEN 15 MG/DL (9-23); CALCIUM LEVEL 9.5 MG/DL (8.5-10.1); CARBON DIOXIDE LEVEL 25 MMOL/L (20-31); CHLORIDE LEVEL 106 MMOL/L (98-107); CREATININE FOR GFR 0.68 MG/DL (0.55-1.30); GLOMERULAR FILTRATION RATE > 60.0 (>60); GLUCOSE, FASTING 107 MG/DL (60-100); SALICYLATE LEVEL < 3.0 MG/DL (<30); SODIUM LEVEL 143 MMOL/L (136-145); TOTAL PROTEIN 6.7 G/DL (5.7-8.2)
[2023-02-22 11:19] LABS: THYROID STIMULATING HORMONE 0.735 uIU/ML (0.55-4.78)
[2023-02-22 11:34] LABS: HCG, SERUM QUALITATIVE NEGATIVE (NEGATIVE)
[2023-02-22 12:05] LABS: BARBITURATES URINE NEGATIVE (NEGATIVE); BENZODIAZEPINES URINE NEGATIVE (NEGATIVE); CANNABINOIDS URINE NEGATIVE (NEGATIVE); COCAINE METABOLITE URINE NEGATIVE (NEGATIVE); METHADONE URINE NEGATIVE (NEGATIVE); OPIATES URINE NEGATIVE (NEGATIVE); PHENCYCLIDINE URINE NEGATIVE (NEGATIVE)
[2023-02-22 12:08] LABS: AMPHETAMINES LEVEL URINE POSITIVE (NEGATIVE)
[2023-02-22] MEDS ORDERED: IBUPROFEN 600MG TAB PO ONE (12:30)
[2023-02-22] MEDS ORDERED: HOME MED LIST COMPLETE! XX SCH (13:30)
[2023-02-22 21:31] LABS: CPK CREATINE PHOSPHOKINASE 44 U/L (34-145)
[2023-02-22] MEDS ORDERED: IBUPROFEN 400MG TAB PO PRN (22:40)
[2023-02-22] MEDS ORDERED: MAALOX 30 ML SUSP *UDC PO PRN (22:40)
[2023-02-22] MEDS ORDERED: MOM 30ML SUSPENSION UDC PO PRN (22:40)
[2023-02-22] MEDS ORDERED: LORazepam 1 MG TAB PO PRN (22:40)
[2023-02-22] MEDS: traZODone 50 MG TAB PO PRN (23:43)
[2023-02-22] MEDS: diphenhydrAMINE 25MG CAP PO PRN (23:43)
[2023-02-23 05:29] VITALS: BP 127/63; TEMP 98.3; O2SAT 99
[2023-02-23 10:49] LABS: HEPATITIS B CORE ANTIBODY IGM NEGATIVE (NEGATIVE)
[2023-02-23 10:53] LABS: HEPATITIS C VIRUS ABY INDEX > 11.00 INDEX (<0.8)
[2023-02-23 18:00] VITALS: BP 105/60; TEMP 98; O2SAT 99
[2023-02-23] MEDS: diphenhydrAMINE 25MG CAP PO PRN (20:52)
[2023-02-23] MEDS: traZODone 50 MG TAB PO PRN (20:52)
[2023-02-23] MEDS: ACETAMINOPHEN TAB 650MG DOSE (2X325MG) PO PRN (20:53)
[2023-02-24 05:18] VITALS: BP 105/68; TEMP 98.1; O2SAT 97
[2023-02-24] MEDS: ACETAMINOPHEN TAB 650MG DOSE (2X325MG) PO PRN (15:33)
[2023-02-24 17:37] VITALS: BP 137/73; TEMP 97.4; O2SAT 98
[2023-02-24] MEDS: diphenhydrAMINE 25MG CAP PO PRN (20:11)
[2023-02-25 06:34] VITALS: BP 136/87; TEMP 98.5; O2SAT 98
[2023-02-25] MEDS: ACETAMINOPHEN TAB 650MG DOSE (2X325MG) PO PRN ×2 (09:19→20:06)
[2023-02-25 16:09] VITALS: BP 129/65; TEMP 97.9; O2SAT 99
[2023-02-25] MEDS: traZODone 50 MG TAB PO PRN (20:05)
[2023-02-25] MEDS: diphenhydrAMINE 25MG CAP PO PRN (20:05)
[2023-02-26 06:33] VITALS: BP 143/82; TEMP 98.2; O2SAT 97
[2023-02-26] MEDS ORDERED: ABIL1TAB11 PO (13:45)
[2023-02-26] MEDS ORDERED: TRAZ-252 PO (13:45)
[2023-02-26 16:31] VITALS: BP 114/58; TEMP 97.9; O2SAT 98
[2023-02-26] MEDS: diphenhydrAMINE 25MG CAP PO PRN (20:06)
[2023-02-26] MEDS: ACETAMINOPHEN TAB 650MG DOSE (2X325MG) PO PRN (20:06)
[2023-02-26] MEDS: traZODone 50 MG TAB PO PRN (20:07)
[2023-02-27 06:25] VITALS: BP 124/67; TEMP 98.3; O2SAT 97
[2023-02-27 17:23] VITALS: BP 151/77; TEMP 98.5; O2SAT 98
[2023-02-27] MEDS: ACETAMINOPHEN TAB 650MG DOSE (2X325MG) PO PRN (20:13)
[2023-02-27] MEDS: traZODone 50 MG TAB PO PRN (20:13)
[2023-02-27] MEDS: diphenhydrAMINE 25MG CAP PO PRN (20:13)
[2023-02-28 06:02] VITALS: BP_SYST 122; BP_SYST 146; BP_DIAS 61; BP_DIAS 76; TEMP 98; TEMP 98.6; O2SAT 95; O2SAT 98
[2023-02-28] MEDS: diphenhydrAMINE 25MG CAP PO PRN (06:39)
[2023-02-28] MEDS: ACETAMINOPHEN TAB 650MG DOSE (2X325MG) PO PRN (06:41)
== END 2023-02-28 11:39 | disposition home or self-care (01) | DRG 751 ==
LOC: M ED 09:42 → M ED INP 22:36 → M PSY 23:02
PROVIDERS: ADMIT Student in an Organized Health Care Education/Training Program; ATTEND Student in an Organized Health Care Education/Training Program
DX: F29 Unspecified psychosis not due to a substance or known physiological condition (principal); F12.90 Cannabis use, unspecified, uncomplicated; F43.10 Post-traumatic stress disorder, unspecified; F14.90 Cocaine use, unspecified, uncomplicated; F15.90 Other stimulant use, unspecified, uncomplicated

== ENCOUNTER 2023-03-21 12:51 | Emergency (ER) | payer MEDICAID ==
[~2023-03-21] VITALS: Ht 175.3 cm; Wt 53.6 kg
[~2023-03-21 12:51] MED LIST changes: +ABIL1TAB11 PO
[2023-03-21 13:39] LABS: HEMATOCRIT 41.1 % (36.0-47.0); HEMOGLOBIN 13.7 g/dl (12.0-15.5); MEAN CORPUSCULAR HEMOGLOBIN 28.5 pg (27.0-33.0); MEAN CORPUSCULAR HGB CONC 33.3 g/dl (32.0-36.5); MEAN CORPUSCULAR VOLUME 85.4 fl (80.0-96.0); PLATELET COUNT, AUTOMATED 258 10^3/uL (150-450); RED BLOOD COUNT 4.81 10^6/uL (4.00-5.40); WHITE BLOOD COUNT 11.1 10^3/uL (4.0-10.0)
[2023-03-21 13:53] LABS: ACETAMINOPHEN LEVEL < 2.0 UG/ML (10.0-20.0)
[2023-03-21 13:54] LABS: ALBUMIN 4.1 G/DL (3.2-5.2); ALKALINE PHOSPHATASE 65 U/L (46-116); ALT/SGPT 50 U/L (7.0-40); AST/SGOT 34 U/L (<34); BILIRUBIN,DIRECT 0.4 MG/DL (<0.4); BILIRUBIN,TOTAL 1.2 MG/DL (0.3-1.2); BLOOD UREA NITROGEN 16 MG/DL (9-23); CALCIUM LEVEL 9.2 MG/DL (8.5-10.1); CARBON DIOXIDE LEVEL 28 MMOL/L (20-31); CHLORIDE LEVEL 105 MMOL/L (98-107); CREATININE FOR GFR 0.71 MG/DL (0.55-1.30); GLOMERULAR FILTRATION RATE > 60.0 (>60); GLUCOSE, FASTING 100 MG/DL (60-100); POTASSIUM SERUM 3.5 MMOL/L (3.5-5.1); SALICYLATE LEVEL < 3.0 MG/DL (<30); SODIUM LEVEL 141 MMOL/L (136-145); TOTAL PROTEIN 7.2 G/DL (5.7-8.2)
[2023-03-21 13:57] LABS: HCG, SERUM QUALITATIVE NEGATIVE (NEGATIVE)
[2023-03-21 13:58] LABS: THYROID STIMULATING HORMONE 0.809 uIU/ML (0.55-4.78)
[2023-03-21 14:12] LABS: ETHYL ALCOHOL (ETHANOL) < 0.003 % (0.000-0.010)
[2023-03-21 14:59] LABS: BARBITURATES URINE NEGATIVE (NEGATIVE); BENZODIAZEPINES URINE NEGATIVE (NEGATIVE); CANNABINOIDS URINE NEGATIVE (NEGATIVE); COCAINE METABOLITE URINE NEGATIVE (NEGATIVE); METHADONE URINE NEGATIVE (NEGATIVE); OPIATES URINE NEGATIVE (NEGATIVE); PHENCYCLIDINE URINE NEGATIVE (NEGATIVE)
[2023-03-21 15:00] LABS: AMPHETAMINES LEVEL URINE POSITIVE (NEGATIVE)
[2023-03-23 07:34] VITALS: BP 122/57; TEMP 97.7; O2SAT 97
== END 2023-03-23 08:20 | disposition short-term general hospital (02) ==
LOC: M ED 12:51
DX: F19.259 Other psychoactive substance dependence with psychoactive substance-induced psychotic disorder, unspecified (principal); F43.10 Post-traumatic stress disorder, unspecified; F32.A Depression, unspecified; Z88.5 Allergy status to narcotic agent

== ENCOUNTER 2023-04-12 15:13 | Emergency (ER) | payer MEDICAID, OTHER, SELFPAY ==
[~2023-04-12] VITALS: Ht 167.6 cm; Wt 54.5 kg
[2023-04-12] MEDS ORDERED: LORazepam 2 MG TAB PO STA (15:37)
[2023-04-12 15:50] LABS: HEMOGLOBIN 14.7 g/dl (12.0-15.5); MEAN CORPUSCULAR HEMOGLOBIN 28.8 pg (27.0-33.0); MEAN CORPUSCULAR HGB CONC 34.2 g/dl (32.0-36.5); MEAN CORPUSCULAR VOLUME 84.1 fl (80.0-96.0); PLATELET COUNT, AUTOMATED 201 10^3/uL (150-450); RED BLOOD COUNT 5.11 10^6/uL (4.00-5.40); WHITE BLOOD COUNT 9.3 10^3/uL (4.0-10.0)
[2023-04-12 16:17] LABS: AMPHETAMINES LEVEL URINE POSITIVE (NEGATIVE); BARBITURATES URINE NEGATIVE (NEGATIVE); BENZODIAZEPINES URINE NEGATIVE (NEGATIVE); CANNABINOIDS URINE NEGATIVE (NEGATIVE); COCAINE METABOLITE URINE NEGATIVE (NEGATIVE); METHADONE URINE NEGATIVE (NEGATIVE); OPIATES URINE NEGATIVE (NEGATIVE); PHENCYCLIDINE URINE NEGATIVE (NEGATIVE)
[2023-04-12 16:19] LABS: ETHYL ALCOHOL (ETHANOL) 0.005 % (0.000-0.010)
[2023-04-12 16:21] LABS: ALKALINE PHOSPHATASE 69 U/L (46-116); ALT/SGPT 67 U/L (7.0-40); AST/SGOT 36 U/L (<34); BILIRUBIN,DIRECT 0.6 MG/DL (<0.4); BILIRUBIN,TOTAL 2.2 MG/DL (0.3-1.2); BLOOD UREA NITROGEN 20 MG/DL (9-23); CALCIUM LEVEL 10.5 MG/DL (8.5-10.1); CARBON DIOXIDE LEVEL 20 MMOL/L (20-31); CHLORIDE LEVEL 104 MMOL/L (98-107); CREATININE FOR GFR 0.78 MG/DL (0.55-1.30); GLOMERULAR FILTRATION RATE > 60.0 (>60); GLUCOSE, FASTING 154 MG/DL (60-100); POTASSIUM SERUM 3.6 MMOL/L (3.5-5.1); SALICYLATE LEVEL < 3.0 MG/DL (<30); SODIUM LEVEL 141 MMOL/L (136-145); TOTAL PROTEIN 8.5 G/DL (5.7-8.2)
[2023-04-12 16:23] LABS: THYROID STIMULATING HORMONE 3.316 uIU/ML (0.55-4.78)
[2023-04-12 16:24] LABS: ACETAMINOPHEN LEVEL < 2.0 UG/ML (10.0-20.0)
[2023-04-12 16:36] LABS: HCG, SERUM QUALITATIVE NEGATIVE (NEGATIVE)
[2023-04-13] MEDS ORDERED: LORazepam 2 MG TAB PO ONE ×2 (03:00→19:45)
[2023-04-13] MEDS ORDERED: OLANZapine ORAL DISINTEGRATING TAB 5MG PO ONE (05:25)
[2023-04-14] MEDS ORDERED: HOME MED LIST COMPLETE! XX SCH (03:05)
[2023-04-14 06:37] VITALS: BP 107/65; TEMP 98; O2SAT 98
== END 2023-04-14 14:04 | disposition home or self-care (01) ==
LOC: M ED 15:13
DX: F19.151 Other psychoactive substance abuse with psychoactive substance-induced psychotic disorder with hallucinations (principal); R00.0 Tachycardia, unspecified; F43.10 Post-traumatic stress disorder, unspecified; Z88.5 Allergy status to narcotic agent

== ENCOUNTER 2023-08-13 13:45 | Emergency (ER) | payer OTHER ==
[~2023-08-13] VITALS: Ht 177.8 cm; Wt 63.6 kg
[2023-08-13] MEDS ORDERED: ACETAMINOPHEN TAB 650MG DOSE (2X325MG) PO ONE (14:50)
[2023-08-13 15:57] LABS: HCG, SERUM QUALITATIVE NEGATIVE (NEGATIVE)
[2023-08-13] MEDS ORDERED: LIDO5DIS41 TOP (16:16)
[2023-08-13] MEDS ORDERED: ACET325C5 PO (16:16)
[2023-08-13] MEDS ORDERED: IBUP-1022 PO (16:16)
[2023-08-13 16:25] VITALS: BP 119/65; TEMP 96; O2SAT 97
== END 2023-08-13 16:35 | disposition home or self-care (01) ==
LOC: M ED 13:45
DX: S43.402A Unspecified sprain of left shoulder joint, initial encounter (principal); Y92.59 Other trade areas as the place of occurrence of the external cause; Y93.9 Activity, unspecified; Y99.9 Unspecified external cause status; F15.10 Other stimulant abuse, uncomplicated; F12.90 Cannabis use, unspecified, uncomplicated; Z79.1 Long term (current) use of non-steroidal anti-inflammatories (NSAID); Z88.5 Allergy status to narcotic agent

== ENCOUNTER 2023-08-15 07:30 | Emergency (ER) | payer OTHER ==
[~2023-08-15 07:30] MED LIST changes: +ACET325C5 PO; +IBUP-1022 PO; +LIDO5DIS41 TOP
[2023-08-15] MEDS ORDERED: KETOROLAC 30 MG/ML 1ML VIAL IM ONE (09:35)
[2023-08-15] MEDS ORDERED: KETOROLAC 30 MG/ML 1ML VIAL As Ordered ONE (09:38)
[2023-08-15 09:40] VITALS: BP 133/62; TEMP 98.3; O2SAT 100
== END 2023-08-15 09:48 | disposition home or self-care (01) ==
LOC: M ED 07:30
DX: S46.812A Strain of other muscles, fascia and tendons at shoulder and upper arm level, left arm, initial encounter (principal); W01.0XXA Fall on same level from slipping, tripping and stumbling without subsequent striking against object, initial encounter; F41.9 Anxiety disorder, unspecified; F43.10 Post-traumatic stress disorder, unspecified; Z88.5 Allergy status to narcotic agent; Y92.9 Unspecified place or not applicable; Y93.9 Activity, unspecified; Y99.9 Unspecified external cause status; Z79.1 Long term (current) use of non-steroidal anti-inflammatories (NSAID); Z79.899 Other long term (current) drug therapy
CPT/HCPCS: 73030; 96372; 99283; J1885

== ENCOUNTER 2023-08-18 10:54 | Emergency (ER) | payer OTHER ==
[~2023-08-18] VITALS: Ht 177.8 cm; Wt 63.6 kg
[2023-08-18 11:18] VITALS: BP 131/68; TEMP 98.8; O2SAT 98
[2023-08-18 13:26] LABS: HEMATOCRIT 43.4 % (36.0-47.0); HEMOGLOBIN 14.5 g/dl (12.0-15.5); MEAN CORPUSCULAR HEMOGLOBIN 27.7 pg (27.0-33.0); MEAN CORPUSCULAR HGB CONC 33.4 g/dl (32.0-36.5); PLATELET COUNT, AUTOMATED 256 10^3/uL (150-450); RED BLOOD COUNT 5.23 10^6/uL (4.00-5.40)
[2023-08-18 13:50] LABS: AMPHETAMINES LEVEL URINE NEGATIVE (NEGATIVE); BARBITURATES URINE NEGATIVE (NEGATIVE); BENZODIAZEPINES URINE NEGATIVE (NEGATIVE); CANNABINOIDS URINE NEGATIVE (NEGATIVE); COCAINE METABOLITE URINE NEGATIVE (NEGATIVE); METHADONE URINE NEGATIVE (NEGATIVE); OPIATES URINE NEGATIVE (NEGATIVE); PHENCYCLIDINE URINE NEGATIVE (NEGATIVE)
[2023-08-18 13:52] LABS: ETHYL ALCOHOL (ETHANOL) < 0.003 % (0.000-0.010)
[2023-08-18 13:54] LABS: ALBUMIN 4.1 G/DL (3.2-5.2); ALKALINE PHOSPHATASE 79 U/L (46-116); ALT/SGPT 168 U/L (7.0-40); AST/SGOT 60 U/L (<34); BILIRUBIN,DIRECT 0.4 MG/DL (<0.4); BILIRUBIN,TOTAL 1.2 MG/DL (0.3-1.2); BLOOD UREA NITROGEN 17 MG/DL (9-23); CALCIUM LEVEL 10.1 MG/DL (8.5-10.1); CARBON DIOXIDE LEVEL 28 MMOL/L (20-31); CHLORIDE LEVEL 105 MMOL/L (98-107); CREATININE FOR GFR 0.67 MG/DL (0.55-1.30); GLOMERULAR FILTRATION RATE > 60.0 (>60); GLUCOSE, FASTING 73 MG/DL (60-100); POTASSIUM SERUM 4.1 MMOL/L (3.5-5.1); SALICYLATE LEVEL < 3.0 MG/DL (<30); SODIUM LEVEL 141 MMOL/L (136-145); TOTAL PROTEIN 7.4 G/DL (5.7-8.2)
[2023-08-18 13:55] LABS: THYROID STIMULATING HORMONE 1.965 uIU/ML (0.55-4.78)
[2023-08-18 14:19] LABS: HCG, SERUM QUALITATIVE NEGATIVE (NEGATIVE)
[2023-08-18] MEDS ORDERED: MED REC CURRENTLY UNOBTAINABLE XX SCH (14:30)
[2023-08-18] MEDS ORDERED: KETOROLAC 30 MG/ML 1ML VIAL IM ONE (15:15)
[2023-08-18] MEDS ORDERED: IBUP-1022 PO (17:36)
== END 2023-08-18 18:01 | disposition home or self-care (01) ==
LOC: M ED 10:54
DX: F43.0 Acute stress reaction (principal); F32.A Depression, unspecified; R45.851 Suicidal ideations; F17.200 Nicotine dependence, unspecified, uncomplicated; Z88.5 Allergy status to narcotic agent; Z79.1 Long term (current) use of non-steroidal anti-inflammatories (NSAID)
CPT/HCPCS: 80048; 80076; 80143; 80307; 82077; 84443; 84703; 85027; 87635; 96372; 99284; J1885

== ENCOUNTER 2023-08-30 13:10 | Emergency (ER) | payer OTHER ==
[~2023-08-30] VITALS: Ht 177.8 cm; Wt 62.7 kg
[2023-08-30] MEDS ORDERED: MORPHINE 4 MG/ML 1ML VIAL IM ONE (13:40)
[2023-08-30 14:15] VITALS: O2SAT 100
[2023-08-30 16:35] VITALS: BP 126/60
[2023-08-30 16:43] VITALS: TEMP 96.2
== END 2023-08-30 17:06 | disposition home or self-care (01) ==
LOC: EDBD 13:10 → M ED 13:10
DX: T33.532A Superficial frostbite of left finger(s), initial encounter (principal); T33.531A Superficial frostbite of right finger(s), initial encounter; T33.832A Superficial frostbite of left toe(s), initial encounter; T33.831A Superficial frostbite of right toe(s), initial encounter; X31.XXXA Exposure to excessive natural cold, initial encounter; F19.10 Other psychoactive substance abuse, uncomplicated; F41.9 Anxiety disorder, unspecified; F32.A Depression, unspecified; F43.10 Post-traumatic stress disorder, unspecified; Z79.1 Long term (current) use of non-steroidal anti-inflammatories (NSAID)

== ENCOUNTER 2023-09-22 15:42 | Emergency (ER) | payer OTHER ==
[~2023-09-22] VITALS: Ht 177.8 cm; Wt 59.8 kg
[2023-09-22 15:51] VITALS: BP 124/65; TEMP 97.7; O2SAT 100
[2023-09-22] MEDS ORDERED: GABA-284 (16:09)
== END 2023-09-22 17:33 | disposition left against medical advice (07) ==
LOC: M ED 15:42
DX: Z53.21 Procedure and treatment not carried out due to patient leaving prior to being seen by health care provider (principal)

== ENCOUNTER 2023-10-31 14:01 | Inpatient (IN) | payer OTHER ==
[~2023-10-31] VITALS: Ht 175.3 cm; Wt 70.6 kg
[~2023-10-31 14:01] MED LIST changes: +GABA-284 PO
[2023-10-31 14:46] LABS: HEMATOCRIT 43.7 % (36.0-47.0); HEMOGLOBIN 14.9 g/dl (12.0-15.5); MEAN CORPUSCULAR HEMOGLOBIN 28.9 pg (27.0-33.0); MEAN CORPUSCULAR HGB CONC 34.1 g/dl (32.0-36.5); MEAN CORPUSCULAR VOLUME 84.9 fl (80.0-96.0); PLATELET COUNT, AUTOMATED 256 10^3/uL (150-450); RED BLOOD COUNT 5.15 10^6/uL (4.00-5.40); WHITE BLOOD COUNT 12.8 10^3/uL (4.0-10.0)
[2023-10-31 15:18] LABS: ETHYL ALCOHOL (ETHANOL) 0.004 % (0.000-0.010)
[2023-10-31 15:20] LABS: ALBUMIN 4.6 G/DL (3.2-5.2); ALKALINE PHOSPHATASE 78 U/L (46-116); ALT/SGPT 237 U/L (7.0-40); AST/SGOT 106 U/L (<34); BILIRUBIN,DIRECT 0.2 MG/DL (<0.4); BILIRUBIN,TOTAL 0.8 MG/DL (0.3-1.2); BLOOD UREA NITROGEN 15 MG/DL (9-23); CALCIUM LEVEL 10.6 MG/DL (8.5-10.1); CARBON DIOXIDE LEVEL 24 MMOL/L (20-31); CHLORIDE LEVEL 110 MMOL/L (98-107); CREATININE FOR GFR 0.72 MG/DL (0.55-1.30); GLOMERULAR FILTRATION RATE > 60.0 (>60); GLUCOSE, FASTING 102 MG/DL (60-100); POTASSIUM SERUM 3.4 MMOL/L (3.5-5.1); SALICYLATE LEVEL < 3.0 MG/DL (<30); SODIUM LEVEL 141 MMOL/L (136-145); TOTAL PROTEIN 8.2 G/DL (5.7-8.2)
[2023-10-31 15:23] LABS: THYROID STIMULATING HORMONE 2.866 uIU/ML (0.55-4.78)
[2023-10-31 15:28] LABS: BARBITURATES URINE NEGATIVE (NEGATIVE); BENZODIAZEPINES URINE NEGATIVE (NEGATIVE); CANNABINOIDS URINE NEGATIVE (NEGATIVE); COCAINE METABOLITE URINE NEGATIVE (NEGATIVE); METHADONE URINE NEGATIVE (NEGATIVE); OPIATES URINE NEGATIVE (NEGATIVE); PHENCYCLIDINE URINE NEGATIVE (NEGATIVE)
[2023-10-31 15:36] LABS: AMPHETAMINES LEVEL URINE POSITIVE (NEGATIVE)
[2023-10-31 15:39] LABS: HCG, SERUM QUALITATIVE NEGATIVE (NEGATIVE)
[2023-10-31] MEDS ORDERED: QUET1TAB17 PO (16:34)
[2023-10-31] MEDS ORDERED: HOME MED LIST COMPLETE! XX SCH (16:35)
[2023-10-31] MEDS: POTASSIUM CHLORIDE 10MEQ SR TABLET PO ONE (16:40)
[2023-10-31] MEDS ORDERED: MAALOX 30 ML SUSP *UDC PO PRN (17:05)
[2023-10-31] MEDS ORDERED: MOM 30ML SUSPENSION UDC PO PRN (17:05)
[2023-10-31 23:15] VITALS: BP 129/82; TEMP 99; O2SAT 98
[2023-10-31] MEDS: diphenhydrAMINE 25MG CAP PO PRN (23:22)
[2023-11-01] MEDS: hydrOXYzine 50 MG TAB PO PRN (01:14)
[2023-11-01] MEDS: IBUPROFEN 400MG TAB PO PRN (06:06)
[2023-11-01 06:24] VITALS: BP_SYST 117; BP_SYST 128; BP_DIAS 78; BP_DIAS 86; TEMP 97.1; O2SAT 98
[2023-11-01] MEDS ORDERED: ZIPRASIDONE 20MG CAPSULE (GEODON) PO SCH (18:00)
[2023-11-01] MEDS: ZIPRASIDONE 20MG CAPSULE (GEODON) PO SCH (18:53)
[2023-11-01] MEDS: GABAPENTIN 400MG CAP PO SCH (20:05)
[2023-11-01] MEDS: ACETAMINOPHEN TAB 650MG DOSE (2X325MG) PO PRN (20:21)
[2023-11-02 09:08] VITALS: BP 128/86; TEMP 97.1; O2SAT 98
[2023-11-02] MEDS: traZODone 50 MG TAB PO PRN (21:14)
[2023-11-03] MEDS: ZIPRASIDONE 20MG CAPSULE (GEODON) PO SCH (10:09)
[2023-11-04 06:30] VITALS: BP 111/64; TEMP 98; O2SAT 100
[2023-11-04] MEDS: diphenhydrAMINE 25MG CAP PO PRN (20:12)
[2023-11-05] MEDS: QUEtiapine FUMARATE 50MG TAB PO SCH (21:00)
[2023-11-06] MEDS: PALIPERIDONE 3MG ER TAB (INVEGA) PO SCH (09:00)
[2023-11-06 15:58] VITALS: BP 121/63; TEMP 98.3; O2SAT 100
[2023-11-07 05:39] VITALS: BP 110/62; TEMP 97.8; O2SAT 99
[2023-11-07 11:21] LABS: ALBUMIN 3.7 G/DL (3.2-5.2); ALKALINE PHOSPHATASE 64 U/L (46-116); ALT/SGPT 179 U/L (7.0-40); AST/SGOT 68 U/L (<34); BILIRUBIN,TOTAL 0.7 MG/DL (0.3-1.2); BLOOD UREA NITROGEN 11 MG/DL (9-23); CALCIUM LEVEL 9.2 MG/DL (8.5-10.1); CARBON DIOXIDE LEVEL 25 MMOL/L (20-31); CHLORIDE LEVEL 108 MMOL/L (98-107); CPK CREATINE PHOSPHOKINASE 28 U/L (34-145); CREATININE FOR GFR 0.58 MG/DL (0.55-1.30); GLOMERULAR FILTRATION RATE > 60.0 (>60); GLUCOSE, FASTING 82 MG/DL (60-100); POTASSIUM SERUM 3.9 MMOL/L (3.5-5.1); SODIUM LEVEL 142 MMOL/L (136-145); TOTAL PROTEIN 6.6 G/DL (5.7-8.2)
[2023-11-07] MEDS: PALIPERIDONE PAL 234MG/1.5ML INJ (INVEGA)(FREE PSY INPT ONLY) IM ONE (11:52)
[2023-11-08 07:01] LABS: CHOLESTEROL RISK RATIO 2.78 (<5); HDL CHOLESTEROL 60.4 MG/DL (>40); LDL CHOLESTEROL 72.2 MG/DL (<100); NON-HDL-C 107.6 MG/DL
[2023-11-08 16:13] VITALS: BP 130/60; TEMP 98.5; O2SAT 95
[2023-11-09 06:34] VITALS: BP 118/57; TEMP 97.8; O2SAT 97
[2023-11-09 16:18] VITALS: BP 114/71; TEMP 98.1; O2SAT 98
[2023-11-10 17:23] VITALS: BP 129/77; TEMP 98.8; O2SAT 100
[2023-11-11] MEDS: PALIPERIDONE PAL 156MG/1ML INJ(INVEGA)(FREE PSY INPT ONLY) IM ONE (11:11)
[2023-11-11] MEDS: BENZTROPINE 1 MG TAB PO PRN (11:22)
[2023-11-11 17:27] VITALS: BP 124/70; TEMP 98.7; O2SAT 98
[2023-11-13] MEDS ORDERED: PALI1TAB2 PO (10:48)
[2023-11-13] MEDS ORDERED: GABA-284 PO (10:48)
[2023-11-13] MEDS ORDERED: BENZ1TAB5 PO (10:48)
[2023-11-13] MEDS ORDERED: QUET50TA4 PO (10:48)
[2023-11-13] MEDS ORDERED: INVE234I IM (10:48)
== END 2023-11-13 13:40 | disposition home or self-care (01) | DRG 753 ==
LOC: M ED 14:01 → M ED INP 17:02 → M PSY 23:11
PROVIDERS: ADMIT Psychiatry & Neurology Psychiatry; ATTEND Student in an Organized Health Care Education/Training Program
DX: F31.9 Bipolar disorder, unspecified (principal); E83.52 Hypercalcemia; Z91.148 Patient's other noncompliance with medication regimen for other reason; G47.00 Insomnia, unspecified; Z88.5 Allergy status to narcotic agent; F43.10 Post-traumatic stress disorder, unspecified; B19.20 Unspecified viral hepatitis C without hepatic coma; E87.6 Hypokalemia; Z79.899 Other long term (current) drug therapy; F15.90 Other stimulant use, unspecified, uncomplicated; F12.90 Cannabis use, unspecified, uncomplicated; F41.9 Anxiety disorder, unspecified

== ENCOUNTER → 2023-12-24 | Outpatient (REF) | payer OTHER, MEDICAID ==
[~2023-12-24] MED LIST changes: +BENZ1TAB5 PO; +INVE234I IM; +PALI1TAB2 PO; +QUET1TAB17 PO
[2023-12-24 17:24] LABS: BASO % 0.8 % (0.0-1.0); EOS # 0.2 10^3/uL (0.0-0.5); EOS % 3.8 % (0.0-3.0); HEMATOCRIT 41.9 % (36.0-47.0); HEMOGLOBIN 14.3 g/dl (12.0-15.5); LYMPH # 1.6 10^3/uL (1.5-5.0); LYMPH % 33.2 % (24.0-44.0); MEAN CORPUSCULAR HEMOGLOBIN 29.3 pg (27.0-33.0); MEAN CORPUSCULAR HGB CONC 34.1 g/dl (32.0-36.5); MEAN CORPUSCULAR VOLUME 85.9 fl (80.0-96.0); MONO # 0.4 10^3/uL (0.0-0.8); MONO % 7.4 % (2.0-8.0); NEUTROPHILS # 2.6 10^3/uL (1.5-8.5); NEUTROPHILS % 54.6 % (36.0-66.0); PLATELET COUNT, AUTOMATED 188 10^3/uL (150-450); RED BLOOD COUNT 4.88 10^6/uL (4.00-5.40); WHITE BLOOD COUNT 4.8 10^3/uL (4.0-10.0)
[2023-12-24 17:53] LABS: ALBUMIN 4.1 G/DL (3.2-5.2); ALKALINE PHOSPHATASE 69 U/L (46-116); ALT/SGPT 119 U/L (7.0-40); AST/SGOT 38 U/L (<34); BILIRUBIN,TOTAL 1.1 MG/DL (0.3-1.2); BLOOD UREA NITROGEN 11 MG/DL (9-23); CALCIUM LEVEL 9.4 MG/DL (8.5-10.1); CARBON DIOXIDE LEVEL 25 MMOL/L (20-31); CHLORIDE LEVEL 109 MMOL/L (98-107); CREATININE FOR GFR 0.62 MG/DL (0.55-1.30); GLOMERULAR FILTRATION RATE > 60.0 (>60); GLUCOSE, FASTING 85 MG/DL (60-100); POTASSIUM SERUM 4.5 MMOL/L (3.5-5.1); SODIUM LEVEL 142 MMOL/L (136-145); TOTAL PROTEIN 7.2 G/DL (5.7-8.2)
[2023-12-24 17:54] LABS: THYROID STIMULATING HORMONE 0.285 uIU/ML (0.55-4.78)
[2023-12-24 17:55] LABS: HEPATITIS B SURFACE ANTIBODY POSITIVE (POSITIVE)
[2023-12-24 17:56] LABS: TOTAL 25(OH) VITAMIN D 17.5 NG/ML (20.0-100.0)
[2023-12-24 18:07] LABS: HEPATITIS B SURFACE ANTIGEN NEGATIVE (NEGATIVE)
[2023-12-24 18:20] LABS: HIV 1&2 SCREEN NEGATIVE (NEGATIVE)
[2023-12-27 02:10] LABS: HEPATITIS C QUANTITATION 317000 IU/mL (.)
== END ==
LOC: M LAB REF 16:50
PROVIDERS: ATTEND Nurse Practitioner Family
DX: E55.9 Vitamin D deficiency, unspecified (principal); B19.20 Unspecified viral hepatitis C without hepatic coma; R53.83 Other fatigue; Z11.9 Encounter for screening for infectious and parasitic diseases, unspecified

== ENCOUNTER 2023-12-30 11:35 | Emergency (ER) | payer MEDICAID, OTHER ==
[~2023-12-30] VITALS: Ht 175.3 cm; Wt 63.6 kg
[2023-12-30 12:03] VITALS: BP 129/74; TEMP 99.1; O2SAT 97
== END 2023-12-30 13:56 | disposition left against medical advice (07) ==
LOC: EDBD 11:35 → M ED 11:35
DX: Z53.21 Procedure and treatment not carried out due to patient leaving prior to being seen by health care provider (principal)

== ENCOUNTER 2024-02-16 07:51 | Inpatient (IN) | payer OTHER ==
[~2024-02-16] VITALS: Ht 165.1 cm; Wt 55.0 kg
[2024-02-16 11:36] LABS: HEMATOCRIT 43.6 % (36.0-47.0); HEMOGLOBIN 15.5 g/dl (12.0-15.5); MEAN CORPUSCULAR HEMOGLOBIN 29.7 pg (27.0-33.0); MEAN CORPUSCULAR HGB CONC 35.6 g/dl (32.0-36.5); MEAN CORPUSCULAR VOLUME 83.5 fl (80.0-96.0); PLATELET COUNT, AUTOMATED 285 10^3/uL (150-450); RED BLOOD COUNT 5.22 10^6/uL (4.00-5.40); WHITE BLOOD COUNT 10.2 10^3/uL (4.0-10.0)
[2024-02-16 11:48] LABS: ETHYL ALCOHOL (ETHANOL) < 0.003 % (0.000-0.010)
[2024-02-16 11:49] LABS: HCG, SERUM QUALITATIVE NEGATIVE (NEGATIVE)
[2024-02-16 11:50] LABS: ALBUMIN 4.6 G/DL (3.2-5.2); ALKALINE PHOSPHATASE 71 U/L (46-116); ALT/SGPT 16 U/L (7.0-40); AST/SGOT 12 U/L (<34); BILIRUBIN,DIRECT 0.8 MG/DL (<0.4); BILIRUBIN,TOTAL 2.7 MG/DL (0.3-1.2); BLOOD UREA NITROGEN 16 MG/DL (9-23); CARBON DIOXIDE LEVEL 27 MMOL/L (20-31); CHLORIDE LEVEL 106 MMOL/L (98-107); CREATININE FOR GFR 0.91 MG/DL (0.55-1.30); GLOMERULAR FILTRATION RATE > 60.0 (>60); GLUCOSE, FASTING 89 MG/DL (60-100); POTASSIUM SERUM 3.4 MMOL/L (3.5-5.1); SALICYLATE LEVEL < 3.0 MG/DL (<30); SODIUM LEVEL 140 MMOL/L (136-145); TOTAL PROTEIN 7.6 G/DL (5.7-8.2)
[2024-02-16 11:53] LABS: THYROID STIMULATING HORMONE 1.099 uIU/ML (0.55-4.78)
[2024-02-16 18:32] LABS: BARBITURATES URINE NEGATIVE (NEGATIVE)
[2024-02-16 18:33] LABS: BENZODIAZEPINES URINE NEGATIVE (NEGATIVE); CANNABINOIDS URINE NEGATIVE (NEGATIVE); COCAINE METABOLITE URINE NEGATIVE (NEGATIVE); METHADONE URINE NEGATIVE (NEGATIVE); OPIATES URINE NEGATIVE (NEGATIVE); PHENCYCLIDINE URINE NEGATIVE (NEGATIVE)
[2024-02-16 18:38] LABS: AMPHETAMINES LEVEL URINE POSITIVE (NEGATIVE)
[2024-02-16] MEDS ORDERED: ACETAMINOPHEN TAB 650MG DOSE (2X325MG) PO PRN (20:15)
[2024-02-16] MEDS ORDERED: IBUPROFEN 400MG TAB PO PRN (20:15)
[2024-02-16] MEDS ORDERED: MAALOX 30 ML SUSP *UDC PO PRN (20:15)
[2024-02-16] MEDS ORDERED: MOM 30ML SUSPENSION UDC PO PRN (20:15)
[2024-02-16] MEDS ORDERED: traZODone 50 MG TAB PO PRN (20:15)
[2024-02-16 22:18] VITALS: BP 121/79; TEMP 97.7; O2SAT 97
[2024-02-17 06:25] VITALS: BP 109/75; TEMP 96.9
[2024-02-17] MEDS ORDERED: ISIB1TAB PO (08:10)
[2024-02-17] MEDS ORDERED: INVE234I IM (08:10)
[2024-02-17] MEDS: PALIPERIDONE 3MG ER TAB (INVEGA) PO SCH (09:00)
[2024-02-17] MEDS: OLANZapine 5 MG TAB PO SCH (21:00)
[2024-02-20] MEDS: OLANZapine 10 MG TAB PO SCH (21:00)
[2024-02-21 17:30] VITALS: BP 135/70; TEMP 98; O2SAT 98
[2024-02-23] MEDS: diphenhydrAMINE 25MG CAP PO PRN (19:11)
[2024-02-23 19:45] VITALS: BP 145/75; TEMP 97.6
[2024-02-25] MEDS ORDERED: OLAN1TAB20 PO (07:59)
== END 2024-02-25 12:30 | disposition home or self-care (01) | DRG 751 ==
LOC: M ED 07:51 → EDBD 07:51 → M ED INP 20:14 → M PSY 21:45
PROVIDERS: ADMIT Student in an Organized Health Care Education/Training Program; ATTEND Student in an Organized Health Care Education/Training Program
DX: F29 Unspecified psychosis not due to a substance or known physiological condition (principal); F15.90 Other stimulant use, unspecified, uncomplicated; F20.9 Schizophrenia, unspecified; K73.9 Chronic hepatitis, unspecified; F17.200 Nicotine dependence, unspecified, uncomplicated; F43.10 Post-traumatic stress disorder, unspecified; Z56.0 Unemployment, unspecified; Z79.899 Other long term (current) drug therapy; Z88.5 Allergy status to narcotic agent

== ENCOUNTER 2024-03-15 18:34 | Emergency (ER) | payer OTHER ==
[~2024-03-15] VITALS: Ht 175.3 cm; Wt 69.5 kg
[~2024-03-15 18:34] MED LIST changes: +ISIB1TAB PO
[2024-03-15 18:37] VITALS: BP 130/90; TEMP 98; O2SAT 99
[2024-03-15] MEDS ORDERED: BENZ1TAB5 (18:55)
[2024-03-15] MEDS ORDERED: SERT50TA29 (18:55)
[2024-03-16] MEDS ORDERED: LIDO5DIS41 TOP (18:36)
[2024-03-16] MEDS ORDERED: METH-1164 PO (18:36)
[2024-03-16] MEDS ORDERED: IBUP-1022 PO (18:36)
== END 2024-03-15 21:43 | disposition left against medical advice (07) ==
LOC: M ED 18:34
DX: Z53.21 Procedure and treatment not carried out due to patient leaving prior to being seen by health care provider (principal)

== ENCOUNTER 2024-03-16 16:09 | Emergency (ER) | payer OTHER ==
[~2024-03-16] VITALS: Ht 175.3 cm; Wt 69.5 kg
[~2024-03-16 16:09] MED LIST changes: +BENZ1TAB5; +SERT50TA29
[2024-03-16] MEDS ORDERED: LIDO5DIS41 TOP (18:36)
[2024-03-16] MEDS ORDERED: IBUP-1022 PO (18:36)
[2024-03-16] MEDS ORDERED: METH-1164 PO (18:36)
[2024-03-16 18:43] VITALS: BP 135/92; TEMP 96.7; O2SAT 96
== END 2024-03-16 18:55 | disposition home or self-care (01) ==
LOC: M ED 16:09
DX: S06.0X0A Concussion without loss of consciousness, initial encounter (principal); M54.2 Cervicalgia; W22.01XA Walked into wall, initial encounter; F43.10 Post-traumatic stress disorder, unspecified; F17.200 Nicotine dependence, unspecified, uncomplicated; F19.10 Other psychoactive substance abuse, uncomplicated; Z88.5 Allergy status to narcotic agent; Z79.899 Other long term (current) drug therapy; Z79.1 Long term (current) use of non-steroidal anti-inflammatories (NSAID); Y92.511 Restaurant or cafe as the place of occurrence of the external cause; Y93.89 Activity, other specified; Y99.9 Unspecified external cause status

== ENCOUNTER 2024-07-12 04:33 | Emergency (ER) | payer OTHER ==
[~2024-07-12] VITALS: Ht 167.6 cm; Wt 85.0 kg
[~2024-07-12 04:33] MED LIST changes: +METH-1164 PO
[2024-07-12 06:31] VITALS: BP 120/64; TEMP 98.8; O2SAT 98
[2024-07-12 06:35] VITALS: O2SAT 98
== END 2024-07-12 06:36 | disposition home or self-care (01) ==
LOC: M ED 04:33 → EDBD 04:33 → M ED 06:36
DX: S16.1XXA Strain of muscle, fascia and tendon at neck level, initial encounter (principal); F19.10 Other psychoactive substance abuse, uncomplicated; Y04.0XXA Assault by unarmed brawl or fight, initial encounter; M54.50 Low back pain, unspecified; F10.10 Alcohol abuse, uncomplicated; F43.10 Post-traumatic stress disorder, unspecified; Y92.410 Unspecified street and highway as the place of occurrence of the external cause; Y93.89 Activity, other specified; Y99.9 Unspecified external cause status; Z88.5 Allergy status to narcotic agent; Z79.899 Other long term (current) drug therapy

== ENCOUNTER 2024-07-18 23:32 | Emergency (ER) | payer OTHER ==
[~2024-07-18] VITALS: Ht 175.3 cm; Wt 61.3 kg
[2024-07-18 23:39] VITALS: BP 170/110; TEMP 97.4; O2SAT 98
== END 2024-07-19 01:25 | disposition left against medical advice (07) ==
LOC: M ED 23:32
DX: Z53.21 Procedure and treatment not carried out due to patient leaving prior to being seen by health care provider (principal)

== ENCOUNTER → 2025-04-07 | Outpatient (CLI) | payer BC ==
[~2025-04-07] MED LIST changes: -IBUP-1022 PO; +IBUP600T42 PO; +LIDO1ADH93 TOP; -LIDO5DIS41 TOP; +PROZ10CA11 PO; -PROZ10CA7 PO
== END ==
LOC: M RAD 12:44
PROVIDERS: ATTEND Nurse Practitioner Family
DX: K59.00 Constipation, unspecified (principal)

== ENCOUNTER → 2025-04-12 | Outpatient (CLI) | payer BC ==
[2025-04-12 13:23] LABS: URINE PREG TEST NEGATIVE (NEGATIVE)
[2025-04-12 13:52] LABS: BASO # 0.0 10^3/uL (0.0-0.2); BASO % 0.6 % (0.0-1.0); EOS # 0.2 10^3/uL (0.0-0.5); EOS % 3.5 % (0.0-3.0); LYMPH # 2.2 10^3/uL (1.5-5.0); LYMPH % 45.0 % (24.0-44.0); MONO # 0.3 10^3/uL (0.0-0.8); MONO % 6.5 % (2.0-8.0); NEUTROPHILS # 2.2 10^3/uL (1.5-8.5); NEUTROPHILS % 44.0 % (36.0-66.0); PLATELET COUNT, AUTOMATED 186 10^3/uL (150-450)
[2025-04-12 14:16] LABS: ALT/SGPT 24 U/L (7.0-40); AST/SGOT 22 U/L (<34); CALCIUM LEVEL 9.5 MG/DL (8.5-10.1); CARBON DIOXIDE LEVEL 27 MMOL/L (20-31); CHLORIDE LEVEL 104 MMOL/L (98-107); CREATININE FOR GFR 0.79 MG/DL (0.55-1.30); GLOMERULAR FILTRATION RATE > 90.0 (>60); POTASSIUM SERUM 3.7 MMOL/L (3.5-5.1); SODIUM LEVEL 137 MMOL/L (136-145)
[2025-04-12 14:33] LABS: Trichomonas vaginalis (AMP) NOT DETECTED (NEGATIVE)
[2025-04-12 14:43] LABS: HIV 1&2 SCREEN NEGATIVE (NEGATIVE)
[2025-04-12 14:57] LABS: GC DNA AMPLIFICATION NEGATIVE (NEGATIVE)
[2025-04-13 11:33] LABS: HEPATITIS A IgG TOTAL NON-REACTIVE (NON-REACTIVE)
== END ==
LOC: M PLALAB 11:43
PROVIDERS: ATTEND Internal Medicine Infectious Disease
DX: B18.2 Chronic viral hepatitis C (principal); Z11.3 Encounter for screening for infections with a predominantly sexual mode of transmission